=== PATIENT | female | born 1945 | race African-American/Black ===

== ENCOUNTER 2016-11-10 09:01 | Inpatient (IN) | payer OTHER ==
[2016-11-10 09:12] VITALS: BMI 28.3
--- NOTE | 2016-11-10 09:29 | PDOC ---
History of Present Illness - General History Source: Patient Exam Limitations: No Limitations - History of Present Illness Initial Comments: 11/10/16 10:26 The patient is a 71 year old female, with a significant past medical history of diabetes and hypothyroidism, who presents to the emergency department sent in by PCP for likely admission to the hospital due to low platelets on recent bloodwork. The patient reports that she is currently being evaluated by Dr. Johnson (oncologist) for a right breast mass. She reports that she saw Dr. Johnson last week and had bloodwork done, which revealed low platelets. The patient additionally admits to one week of chest pain on exertion with associated dyspnea on exertion. The patient describes her chest pain as tight. She also reports a mild, dry cough for the past day and reports generalized weakness but denies feeling lightheaded or any syncopal episodes. The patient denies fever, chills, nausea, vomiting, diarrhea, melena or dysuria. Allergies: Codeine Past Surgical History: Cholecystectomy Family History: Extensive cardiac issues Social History: Non smoker. Denies alcohol or drug use. PCP: Dr. Anam Faith <Ashely Lewis - Last Filed: 11/10/16 11:54> - General History Source: Patient Exam Limitations: No Limitations <William Rivera - Last Filed: 11/12/16 15:45> - General Chief Complaint: Revisit, Lab Variance Stated Complaint: ADMISSION PCP, BLOOD TRANS Time Seen by Provider: 11/10/16 09:15 Past History <Ashely Lewis - Last Filed: 11/10/16 11:54> - Past Medical History Anemia: No Asthma: Yes Cancer: No Cardiac Disorders: No CVA: No COPD: No CHF: No Dementia: No Diabetes: Yes GI Disorders: Yes (GASTRITIS) Disorders: No HTN: Yes Hypercholesterolemia: No Liver Disease: Yes Seizures: No Thyroid Disease: Yes - Surgical History Cholecystectomy: Yes - Psycho/Social/Smoking Cessation Hx Anxiety: No Suicidal Ideation: No Smoking History: Never smoked Have you smoked in the past 12 months: No Information on smoking cessation initiated: No Hx Alcohol Use: No Drug/Substance Use Hx: No Substance Use Type: None <William Rivera - Last Filed: 11/12/16 15:45> - Past Medical History Allergies/Adverse Reactions: Allergies Allergy/AdvReac Type Severity Reaction Status Date / Time codeine Allergy Severe Rash Verified 11/10/16 09:07 Home Medications: Ambulatory Orders Levothyroxine [Synthroid] 75 mcg PO DAILY 05/12/13 Propranolol HCl 80 mg PO HS 05/12/13 Linagliptin [Tradjenta] 5 mg PO DAILY 04/11/16 Review of Systems - Review of Systems Able to Perform ROS?: Yes Comments:: 11/10/16 10:13 GENERAL/CONSTITUTIONAL: +Weakness. No fever or chills. HEAD, EYES, EARS, NOSE AND THROAT: No change in vision. No ear pain or discharge. No sore throat. CARDIOVASCULAR: +Chest pain on exertion, dyspnea on exertion. RESPIRATORY: +Cough. No wheezing or hemoptysis. GASTROINTESTINAL: No nausea, vomiting, diarrhea or constipation. GENITOURINARY: No dysuria, frequency, or change in urination. MUSCULOSKELETAL: No joint or muscle swelling or pain. No neck or back pain. SKIN: No rash. NEUROLOGIC: No headache, vertigo, loss of consciousness, or change in strength/ sensation. ENDOCRINE: No increased thirst. No abnormal weight change. HEMATOLOGIC/LYMPHATIC: No anemia, easy bleeding, or history of blood clots. ALLERGIC/IMMUNOLOGIC: No hives or skin allergy. <Ashely Lewis - Last Filed: 11/10/16 11:54> *Physical Exam - Vital Signs Last Vital Signs Temp Pulse Resp BP Pulse Ox 98.0 F 73 18 115/58 100 11/10/16 09:08 11/10/16 09:08 11/10/16 09:08 11/10/16 09:08 11/10/16 09:08 - Physical Exam Comments: 11/10/16 09:31 GENERAL: Awake, alert, and fully oriented, in no acute distress. HEAD: No signs of trauma. EYES: PERRLA, EOMI, sclera anicteric, conjunctiva clear. ENT: Auricles normal inspection, hearing grossly normal, nares patent, oropharynx clear without exudates. Moist mucosa. NECK: Normal ROM, supple, no lymphadenopathy, JVD, or masses. LUNGS: Breath sounds equal, clear to auscultation bilaterally. No wheezes, and no crackles. HEART: Regular rate and rhythm, normal S1 and S2, no murmurs, rubs or gallops. ABDOMEN: Soft, nontender, normoactive bowel sounds. No guarding, no rebound. No masses. EXTREMITIES: Normal range of motion, no edema. No clubbing or cyanosis. No cords , erythema, or tenderness. NEUROLOGICAL: Cranial nerves II through XII grossly intact. Normal speech, normal gait. SKIN: Warm, dry, normal turgor, no rashes or lesions noted. RECTAL EXAM: No fissures, tears or hemorrhoids. Brown stool. <Ashely Lewis - Last Filed: 11/10/16 11:54> - Vital Signs Last Vital Signs Temp Pulse Resp BP Pulse Ox 98.0 F 73 18 115/58 100 11/10/16 09:08 11/10/16 09:08 11/10/16 09:08 11/10/16 09:08 11/10/16 09:08 <William Rivera - Last Filed: 11/12/16 15:45> Heart Score/ECG Review - History History: Slightly suspicious - Electrocardiogram EKG: Normal - Age Age: >/= 65 - Risk Factors Risk Factors Heart Score: Yes Hx Diabetes Based on the list above the patient has:: 1-2 risk factors - Troponin Troponin: </= normal limit - Score Heart Score - Total: 3 #1 ECG reviewed & interpreted by me at: 10:00 11/10/16 10:05 NSR 73, T wave flat III, no std/charley, normal axis, normal intervals QTC 453 msec <William Rivera - Last Filed: 11/12/16 15:45> ED Treatment Course - LABORATORY CBC & Chemistry Diagram: 11/10/16 09:35 11/10/16 09:35 <Ashely Lewis - Last Filed: 11/10/16 11:54> - LABORATORY CBC & Chemistry Diagram: 11/12/16 08:00 11/12/16 06:35 <William Rivera - Last Filed: 11/12/16 15:45> Medical Decision Making - Medical Decision Making 11/10/16 10:49 EXAM: RAD/CHEST PA & LAT Reviewed By: Dr. Gavin Howe IMPRESSION: No evidence of active pulmonary disease. Called Dr. Paul at at 10:47. Awaiting callback. Dr. Beverly returned call at 10:48. Case discussed. <JoshuaAshely - Last Filed: 11/10/16 11:54> - Medical Decision Making 11/10/16 09:28 A portion of this note was documented by scribe services under my direction. I have reviewed the details of the note, within reason, and agree with the documentation with the following case summary and management plan written by me. Patient treated in the ED. Nursing notes are reviewed and incorporated into the medical decision-making. Vital signs reviewed. Peripheral IV access obtained by the nurse, laboratory studies are drawn and sent, reviewed and interpreted by myself. Vital Signs Temp Pulse Resp BP Pulse Ox 98.0 F 73 18 115/58 100 11/10/16 09:08 11/10/16 09:08 11/10/16 09:08 11/10/16 09:08 11/10/16 09:08 71-year-old female with past medical history diabetes, hypothyroidism, under current evaluation by oncologist Dr. Johnson for right breast mass sent in by Dr. Anam Faith for blood chest fusion and admission to the hospital. 6 days ago, the patient had underwent routine blood work in preparation for her visit to the oncologist tomorrow for the right breast mass. Her blood results returned and low plts. When asked further regarding symptoms, the patient versus one week of chest pain on exertion and dyspnea on exertion. Reports feeling fatigue but denies lightheadedness or syncope. Also reports a mild dry cough yesterday. Denies fevers. We'll need to obtain a CBC and a type and screen and transfuse PRN if plts or Hgb is low. However, given her age and strong family history of cardiac disease , we'll need to rule out myocardial infarction. We'll obtain EKG, chest x-ray, troponin. Ultimate, the patient should be mid to the hospital for further evaluation. 11/10/16 10:49 Chest xray reviewed, pending official radiology read. No acute findings. CBC, BMP 11/10/16 09:35 11/10/16 09:35 CMP Sodium 142 mmol/L (136-145) 11/10/16 09:35 Potassium 4.2 mmol/L (3.5-5.1) 11/10/16 09:35 Chloride 105 mmol/L (98-107) 11/10/16 09:35 Carbon Dioxide 28 mmol/L (21-32) 11/10/16 09:35 Anion Gap 9 (8-16) 11/10/16 09:35 BUN 12 mg/dL (7-18) 11/10/16 09:35 Creatinine 0.8 mg/dL (0.55-1.02) 11/10/16 09:35 Creat Clearance w eGFR > 60 (>60) 11/10/16 09:35 Random Glucose 278 mg/dL (74-106) H D 11/10/16 09:35 Calcium 8.2 mg/dL (8.5-10.1) L 11/10/16 09:35 Total Bilirubin 0.9 mg/dL (0.2-1.0) D 11/10/16 09:35 AST 58 U/L (15-37) H D 11/10/16 09:35 ALT 43 U/L (12-78) 11/10/16 09:35 Alkaline Phosphatase 68 U/L (45-117) 11/10/16 09:35 Creatine Kinase 95 IU/L (26-192) 11/10/16 09:35 Troponin I < 0.02 ng/ml (0.00-0.05) 11/10/16 09:35 Total Protein 6.9 g/dl (6.4-8.2) 11/10/16 09:35 Albumin 3.4 g/dl (3.4-5.0) 11/10/16 09:35 Urine Test Results Urine Color Yellow 11/10/16 09:35 Urine Appearance Clear 11/10/16 09:35 Urine pH 5.0 (5.0-8.0) 11/10/16 09:35 Ur Specific [place] 1.015 (1.001-1.035) 11/10/16 09:35 Urine Protein Negative (NEGATIVE) 11/10/16 09:35 Urine Glucose (UA) 1+ (NEGATIVE) H 11/10/16 09:35 Urine Ketones Negative (NEGATIVE) 11/10/16 09:35 Urine Blood Negative (NEGATIVE) 11/10/16 09:35 Urine Nitrite Negative (NEGATIVE) 11/10/16 09:35 Urine Bilirubin Negative (NEGATIVE) 11/10/16 09:35 Ur Leukocyte Esterase 3+ (NEGATIVE) H 11/10/16 09:35 Urine RBC 1 /hpf (0-3) 11/10/16 09:35 Urine WBC 31 /hpf (3-5) 11/10/16 09:35 Ur Epithelial Cells Rare /hpf (FEW) 11/10/16 09:35 Urine Mucus Rare 11/10/16 09:35 Labs reviewed. Low plts and Low WBC. UA positive for infection. Microbiology reviewed and urine culture ordered. Ceftriaxone ordered. Will hold off from aspirin as she has low platelets Case discussed with DR. Faith. He requests Dr. Johnson and Dr. Garcia (for biopsy). Requests DR. Muñiz's service. Case discussed with DR. Paul who accepts for telemetry admission. Case discussed in detail with admitting physician including history, physical exam and ancillary studies. Admitting physician has assumed care for the patient, will follow all pending diagnostics and will complete the evaluation and treatment. <William Rivera - Last Filed: 11/12/16 15:45> *DC/Admit/Observation/Transfer - Attestations Scribe Attestion: 11/10/16 09:31 Documentation prepared by Ashely Lewis, acting as medical technologist generalist for William Rivera MD. <Ashely Lewis - Last Filed: 11/10/16 11:54> - Discharge Dispostion Admit: Yes <William Rivera - Last Filed: 11/12/16 15:45> Diagnosis at time of Disposition: Thrombocytopenia Leukopenia Qualifiers: Leukopenia type: other Qualified Code(s): D72.818 - Other decreased white blood cell count UTI (urinary tract infection) Qualifiers: Urinary tract infection type: site unspecified Hematuria presence: without hematuria Qualified Code(s): N39.0 - Urinary tract infection, site not specified - Referrals
[2016-11-10 09:58] LABS: BASOPHIL 0.4 % (0-2.0); EOSINOPHIL 2.9 % (0-4.5); MCH 32.6 pg (25.7-33.7); MCHC 34.2 g/dl (32.0-36.0); MEAN CELL VOLUME 95.3 fl (80-96); MEAN PLT VOLUME 10.5 fl (7.5-11.1); NEUTROPHILS 71.4 % (42.8-82.8); PLATELET COUNT 47 K/MM3 (134-434); RDW 13.8 % (11.6-15.6); WHITE BLOOD COUNT 3.1 K/mm3 (4.0-10.0)
[2016-11-10 10:08] LABS: STOOL FOR OCCULT BLOOD POSITIVE (NEGATIVE)
[2016-11-10 10:14] LABS: URINE APPEARANCE CLEAR; URINE BILIRUBIN NEGATIVE (NEGATIVE); URINE BLOOD NEGATIVE (NEGATIVE); URINE COLOR YELLOW; URINE GLUCOSE (UA) 1+ (NEGATIVE); URINE KETONE NEGATIVE (NEGATIVE); URINE NITRITE NEGATIVE (NEGATIVE); URINE PROTEIN NEGATIVE (NEGATIVE); URINE UROBILINOGEN NEGATIVE E.U./dl (0.2-1.0)
[2016-11-10 10:15] LABS: ALBUMIN 3.4 g/dl (3.4-5.0); ANION GAP 9 (8-16); BILIRUBIN,TOTAL 0.9 mg/dL (0.2-1.0); CALCIUM 8.2 mg/dL (8.5-10.1); CO2 28 mmol/L (21-32); CREATININE 0.8 mg/dL (0.55-1.02); GLUCOSE,RANDOM 278 mg/dL (74-106); INR 1.25 (0.82-1.09); PROTHROMBIN TIME (PATIENT) 13.8 SEC (9.98-11.88); SGOT/AST 58 U/L (15-37); SGPT/ALT 43 U/L (12-78); TOT PROT 6.9 g/dl (6.4-8.2)
[2016-11-10 10:17] LABS: ALK PHOS 68 U/L (45-117); TROPONIN I < 0.02 ng/ml (0.00-0.05)
[2016-11-10 10:18] LABS: ACTIVATED PTT 31.4 SECONDS (26.9-34.4)
[2016-11-10 10:21] LABS: URINE LEUK ESTERASE 3+ (NEGATIVE)
[2016-11-10 10:26] LABS: URINE MUCUS RARE; URINE RBC 1 /hpf (0-3); URINE WBC 31 /hpf (3-5)
[2016-11-10] MEDS ORDERED: CEFTRIAXONE 1 GM in DEXTROSE 5%-WATER - 50 ML IVPB ONE (10:43)
[2016-11-10] MEDS ORDERED: CEFTRIAXONE 50 ML ONE (12:30)
--- NOTE | 2016-11-10 12:51 | HP ---
Admitting History and Physical - Primary Care Physician PCP: Anam Faith I - Admission Chief Complaint: sent inby PMD for abnormal blod work History of Present Illness: The patient is a 71 year old female, with a significant past medical history of diabetes and hypothyroidism, who presents to the emergency department sent in by PCP for likely admission to the hospital due to low platelets on recent bloodwork. The patient reports that she is currently being evaluated by Dr. Johnson (oncologist) for a right breast mass. She reports that she saw Dr. Johnson last week and had bloodwork done, which revealed low platelets. The patient additionally admits to one week of chest pain on exertion with associated dyspnea on exertion. The patient describes her chest pain as tight. She also reports a mild, dry cough for the past day and reports generalized weakness but denies feeling lightheaded or any syncopal episodes. The patient denies fever, chills, nausea, vomiting, diarrhea, melena or dysuria. Allergies: Codeine Past Surgical History: Cholecystectomy Family History: Extensive cardiac issues Social History: Non smoker. Denies alcohol or drug use. PCP: Dr. Anam Faith per patient she complaining of right sided cva tenderss- and last nite she reporst feeling very hot. in ER Noted to have UTI,low wbc and low platelet count History Source: Patient - Past Medical History Heme/Onc: Yes: Other (right breast mass) Endocrine: Yes: Diabetes Mellitus, Hypothyroidism - Past Surgical History Additional Past Surgical History: thyroid surgery - Smoking History Smoking history: Never smoked Have you smoked in the past 12 months: No - Alcohol/Substance Use Hx Alcohol Use: No Home Medications - Allergies Allergies/Adverse Reactions: Allergies Allergy/AdvReac Type Severity Reaction Status Date / Time codeine Allergy Severe Rash Verified 11/10/16 09:07 - Home Medications Home Medications: Ambulatory Orders Levothyroxine [Synthroid] 75 mcg PO DAILY 05/12/13 Propranolol HCl 80 mg PO HS 05/12/13 Linagliptin [Tradjenta] 5 mg PO DAILY 04/11/16 Levothyroxine [Synthroid -] 75 mcg PO DAILY #30 tablet 11/10/16 Physical Examination Vital Signs: Vital Signs Temperature 98.0 F 11/10/16 09:08 Pulse Rate 73 11/10/16 09:08 Respiratory Rate 18 11/10/16 09:08 Blood Pressure 115/58 11/10/16 09:08 O2 Sat by Pulse Oximetry (%) 100 11/10/16 09:08 Constitutional: Yes: Calm Cardiovascular: Yes: Regular Rate and Rhythm, S1, S2 Respiratory: Yes: CTA Bilaterally Gastrointestinal: Yes: Normal Bowel Sounds, Soft, Tenderness (right CVA) Edema: No Neurological: Yes: Alert, Oriented Imaging - Results Chest X-ray: Report Reviewed Problem List - Problems (1) Thrombocytopenia Assessment/Plan: oncology scd for d vt ppx Code(s): D69.6 - THROMBOCYTOPENIA, UNSPECIFIED (2) UTI (urinary tract infection) Assessment/Plan: culture pending abx hydration posible renal stone Code(s): N39.0 - URINARY TRACT INFECTION, SITE NOT SPECIFIED Qualifiers: Urinary tract infection type: site unspecified Hematuria presence: without hematuria Qualified Code(s): N39.0 - Urinary tract infection, site not specified (3) Breast mass Assessment/Plan: oncologt eval Code(s): N63 - UNSPECIFIED LUMP IN BREAST (4) Dyspnea on exertion Assessment/Plan: ECHO cardio Code(s): R06.09 - OTHER FORMS OF DYSPNEA (5) Occult blood positive stool Assessment/Plan: ppi gi consult cbc moniitorig Code(s): R19.5 - OTHER FECAL ABNORMALITIES (6) Hypothyroid Assessment/Plan: check tsh syhnthroid Code(s): E03.9 - HYPOTHYROIDISM, UNSPECIFIED (7) Diabetes Assessment/Plan: hga1c bgm sliding scale lipid panel hold ggtp4 inhibitor for now Code(s): E11.9 - TYPE 2 DIABETES MELLITUS WITHOUT COMPLICATIONS Qualifiers: Diabetes mellitus type: type 2
[2016-11-10] MEDS ORDERED: DEXTROSE 5%-0.45% SALINE 1,000 ML IV SCH (13:45)
--- NOTE | 2016-11-10 14:38 | PN ---
Progress Note (short form) - Note Progress Note: called to evaluate patient. patient was seen in office once 04/[address] Cummins. She then did not show up for a follow-up visit in 05/07 and in review of the [employer] system it appears as though in 05/07 she had a trans jugullar liver biopsy performed. this was ordered by Dr. Brush. I advised Dr. Bocanegra to call Dr. Brush's office for further evaluation.
[2016-11-10] MEDS: SODIUM CHLORIDE 1,000 ML IV SCH (14:50)
--- NOTE | 2016-11-10 16:34 | CONSULT ---
Consult - text type - Consultation Consultation Note: The patient is a 71 year old female, with a significant past medical history of diabetes and hypothyroidism, who presents to the emergency department with chest pain and shortness of breath. The patient describes her chest pain as tight. She also reports a mild, dry cough for the past day and reports generalized weakness but denies feeling lightheaded or any syncopal episodes. The patient denies fever, chills, nausea, vomiting, diarrhea, melena or dysuria. Allergies: Codeine Past Surgical History: Cholecystectomy Family History: Extensive cardiac issues Social History: Non smoker. Denies alcohol or drug use. - Past Medical History Heme/Onc: Yes: Other (right breast mass) Endocrine: Yes: Diabetes Mellitus, Hypothyroidism - Past Surgical History Additional Past Surgical History: thyroid surgery - Smoking History Smoking history: Never smoked Home Medications - Allergies Allergies/Adverse Reactions: Allergies Allergy/AdvReac Type Severity Reaction Status Date / Time codeine Allergy Severe Rash Verified 11/10/16 09:07 - Home Medications Home Medications: Ambulatory Orders Levothyroxine [Synthroid] 75 mcg PO DAILY 05/12/13 Propranolol HCl 80 mg PO HS 05/12/13 Linagliptin [Tradjenta] 5 mg PO DAILY 04/11/16 Levothyroxine [Synthroid -] 75 mcg PO DAILY #30 tablet 11/10/16 Current Medications Ceftriaxone Sodium (Rocephin 1gm Ivpb (Pre-Docked)) 1 gm IVPB DAILY [facility] Pantoprazole Sodium (Protonix 40mg Ivpb (Pre-Docked)) 100 mls @ 200 mls/hr IVPB DAILY [facility] Sodium Chloride (Normal Saline -) 1,000 mls @ 100 mls/hr IV ASDIR [facility] Last Admin: 11/10/16 14:50 Dose: 100 mls/hr Insulin Aspart (Novolog Vial Sliding Scale -) 1 vial SQ ACHS [facility] PRN Reason: Protocol Levothyroxine Sodium (Synthroid -) 75 mcg PO DAILY@0700 [facility] Physical Examination Vital Signs: Last Vital Signs Temp Pulse Resp BP Pulse Ox 98.0 F 71 20 119/62 100 11/10/16 09:08 11/10/16 14:11 11/10/16 14:11 11/10/16 14:11 11/10/16 15:14 Constitutional: Yes: Calm Cardiovascular: Yes: Regular Rate and Rhythm, S1, S2 Respiratory: Yes: CTA Bilaterally Gastrointestinal: Yes: Normal Bowel Sounds, Soft, Tenderness (right CVA) Neurological: Yes: Alert, Oriented Imaging - Results Chest X-ray: Report Reviewed Problem List - Problems (1) Thrombocytopenia Assessment/Plan: oncology scd for d vt ppx Code(s): D69.6 - THROMBOCYTOPENIA, UNSPECIFIED (2) UTI (urinary tract infection) Assessment/Plan: culture pending abx hydration posible renal stone Code(s): N39.0 - URINARY TRACT INFECTION, SITE NOT SPECIFIED Qualifiers: Urinary tract infection type: site unspecified Hematuria presence: without hematuria Qualified Code(s): N39.0 - Urinary tract infection, site not specified (3) Breast mass Assessment/Plan: oncologt eval Code(s): N63 - UNSPECIFIED LUMP IN BREAST (4) Dyspnea on exertion Assessment/Plan: ECHO cardio Code(s): R06.09 - OTHER FORMS OF DYSPNEA (5) Occult blood positive stool Assessment/Plan: ppi gi consult cbc moniitorig Code(s): R19.5 - OTHER FECAL ABNORMALITIES (6) Hypothyroid Assessment/Plan: check tsh syhnthroid Code(s): E03.9 - HYPOTHYROIDISM, UNSPECIFIED (7) Diabetes Assessment/Plan: hga1c bgm sliding scale lipid panel hold ggtp4 inhibitor for now Code(s): E11.9 - TYPE 2 DIABETES MELLITUS WITHOUT COMPLICATIONS Qualifiers: Diabetes mellitus type: type 2 A/P 71 y/o patient with cirrhosis, pncytopenia, who is being evaluated for breast mass comes in with hoarseness of voice, chestpain, cough ? bronchitis U/A s/o UTI On rocephin check blood cultures Dr. Amaya f/u regarding atypical chest pain breast mass--check u/s . will need platelet transfusion prior to biopsy
[2016-11-10] MEDS: INSULIN SLIDING SCALE (NOVOLOG) 1 VIAL SQ SCH (17:29)
[2016-11-10 18:28] LABS: TROPONIN I < 0.02 ng/ml (0.00-0.05)
[2016-11-11] MEDS: INSULIN SLIDING SCALE (NOVOLOG) 1 VIAL SQ SCH ×5 (00:10→21:39)
[2016-11-11] MEDS ORDERED: LEVOTHYROXINE NA 25 MCG TABLET (FP) ONE (07:27)
[2016-11-11] MEDS: LEVOTHYROXINE NA 75 MCG TABLET (FP) PO SCH (07:31)
[2016-11-11 07:55] LABS: INR 1.26 (0.82-1.09); PROTHROMBIN TIME (PATIENT) 13.9 SEC (9.98-11.88)
[2016-11-11 08:01] LABS: BASOPHIL 0.4 % (0-2.0); EOSINOPHIL 4.5 % (0-4.5); MCH 32.7 pg (25.7-33.7); MCHC 34.2 g/dl (32.0-36.0); MEAN CELL VOLUME 95.6 fl (80-96); MEAN PLT VOLUME 10.3 fl (7.5-11.1); NEUTROPHILS 59.4 % (42.8-82.8); RDW 13.8 % (11.6-15.6); WHITE BLOOD COUNT 2.4 K/mm3 (4.0-10.0)
[2016-11-11 08:09] LABS: PHOSPHOROUS 2.9 mg/dL (2.5-4.9); SGOT/AST 57 U/L (15-37)
[2016-11-11 08:24] LABS: ALK PHOS 54 U/L (45-117); ANION GAP 6 (8-16); BILIRUBIN,TOTAL 0.9 mg/dL (0.2-1.0); CALCIUM 7.8 mg/dL (8.5-10.1); CO2 26 mmol/L (21-32); CREATININE 0.6 mg/dL (0.55-1.02); GLUCOSE,RANDOM 124 mg/dL (74-106); MAGNESIUM 1.8 mg/dL (1.8-2.4); PLATELET COUNT 36 K/MM3 (134-434); SGPT/ALT 39 U/L (12-78); THYROID STIMULATING HORMONE 0.62 uIU/ml (0.358-3.74)
[2016-11-11] MEDS ORDERED: PANTOPRAZOLE SODIUM 40 MG VIAL ONE (09:14)
--- NOTE | 2016-11-11 09:15 | PN ---
Progress Note (short form) - Note Progress Note: Cardiology Consult Dictated Patient known to me from office consultation, referred by Dr. Faith in August for evaluation of RHODES. Cardiac work up has been unremarkable including a recent nuclear stress test showing no ischemia with normal LVEF and prior non-obstructive cath around . She does have a trivial pericardial effusion, stable since August which is not the cause of her sx, in my opinion. A breast biopsy planned last week was cancelled due to new onset of pancytopenia of unclear etiology. She has a PMH of cirrhosis, etiology also unclear. REC: Do not suspect cardiac etiology of RHODES- more likely due to anemia and possible underlying malignancy vs chronic inflammatory dz. Recommend oncology and pulmonary evaluation. Patient can be downgraded from telemetry to general medical floor.
[2016-11-11] MEDS: PANTOPRAZOLE SODIUM 100 ML IVPB SCH (09:17)
--- NOTE | 2016-11-11 09:53 | PN ---
Progress Note, Physician History of Present Illness: C/O CHEST PAIN WORSE ON MOVEMENT C/O COUGH - Current Medication List Current Medications: Active Medications Ceftriaxone Sodium (Rocephin 1gm Ivpb (Pre-Docked)) 1 gm IVPB DAILY [facility] Pantoprazole Sodium (Protonix 40mg Ivpb (Pre-Docked)) 100 mls @ 200 mls/hr IVPB DAILY [facility] Last Admin: 11/11/16 09:17 Dose: 200 mls/hr Sodium Chloride (Normal Saline -) 1,000 mls @ 100 mls/hr IV ASDIR [facility] Last Admin: 11/10/16 14:50 Dose: 100 mls/hr Insulin Aspart (Novolog Vial Sliding Scale -) 1 vial SQ ACHS [facility] PRN Reason: Protocol Last Admin: 11/11/16 07:20 Dose: Not Given Levothyroxine Sodium (Synthroid -) 75 mcg PO DAILY@0700 [facility] Last Admin: 11/11/16 07:31 Dose: 75 mcg - Objective Vital Signs: Vital Signs Temperature 98.0 F 11/11/16 07:12 Pulse Rate 67 11/11/16 07:12 Respiratory Rate 17 11/11/16 07:12 Blood Pressure 119/69 11/11/16 07:12 O2 Sat by Pulse Oximetry (%) 97 11/11/16 07:12 Cardiovascular: Yes: Regular Rate and Rhythm Respiratory: Yes: Diminished Gastrointestinal: Yes: Normal Bowel Sounds, Soft Edema: No Labs: CBC, BMP 11/11/16 07:00 11/11/16 07:00 INR, PTT INR 1.26 (0.82-1.09) H 11/11/16 07:00 Fibrinogen 279.0 mg/dL (238-498) 11/11/16 07:00 Assessment/Plan - Problems (1) Thrombocytopenia Assessment/Plan: AND LEUKOPENIA oncology scd for d vt ppx Code(s): D69.6 - THROMBOCYTOPENIA, UNSPECIFIED (2) UTI (urinary tract infection) Assessment/Plan: culture pending abx hydration CT NOTED--NO STONES Code(s): N39.0 - URINARY TRACT INFECTION, SITE NOT SPECIFIED Qualifiers: Urinary tract infection type: site unspecified Hematuria presence: without hematuria Qualified Code(s): N39.0 - Urinary tract infection, site not specified (3) Breast mass Assessment/Plan: oncology eval Code(s): N63 - UNSPECIFIED LUMP IN BREAST (4) Dyspnea on exertion Assessment/Plan: ECHO cardio CT OF CHEST--PULM NEBS Code(s): R06.09 - OTHER FORMS OF DYSPNEA (5) Occult blood positive stool Assessment/Plan: ppi gi consult cbc monitoring Code(s): R19.5 - OTHER FECAL ABNORMALITIES (6) Hypothyroid Assessment/Plan: check tsh syhnthroid Code(s): E03.9 - HYPOTHYROIDISM, UNSPECIFIED (7) Diabetes Assessment/Plan: hga1c bgm sliding scale lipid panel hold ggtp4 inhibitor for now Code(s): E11.9 - TYPE 2 DIABETES MELLITUS WITHOUT COMPLICATIONS Qualifiers: Diabetes mellitus type: type 2
--- NOTE | 2016-11-11 10:10 | CONS ---
DATE OF CONSULTATION: 11/11/2016 REQUESTING PHYSICIAN: Stehpon Muñiz MD REASON FOR CONSULTATION: Shortness of breath. HISTORY: The patient is a 71-year-old female who is known to me from office referred by Dr. Anam Faith around August 2016 for evaluation of chronic dyspnea on exertion. Cardiac workup has been essentially unremarkable including a recent nuclear stress test, which showed no ischemia with normal LV EF. It should be noted that the patient has also had a previous cardiac catheterization around 2012, which showed nonobstructive disease at [facility]. She does have a trivial pericardial effusion, which has been stable since August and I do not believe is the etiology of her dyspnea on exertion. A breast biopsy was planned last week here at [facility] but was cancelled because the patient was found to have pancytopenia of unknown etiology of new onset. She is now referred to the emergency room for evaluation of new onset pancytopenia and chronic dyspnea on exertion and ongoing atypical chest pain- primarily with coughing. On review of systems she has chronic dyspnea on exertion as well as a new dry cough, which began on Thursday. Her chest x-ray here on presentation to the ER showed no evidence of active disease. She has been afebrile thus far in the emergency room with O2 saturation of 99%-100% on room air. PAST MEDICAL HISTORY: Significant for hypothyroidism, diabetes, status post cholecystectomy. ALLERGIES: CODEINE. HOME MEDICATIONS: Include propranolol 80 mg nightly, Tradjenta 5 mg daily, and Synthroid 75 mcg daily. FAMILY HISTORY: Noncontributory. SOCIAL HISTORY: No alcohol, tobacco, or illicit drug use. PHYSICAL EXAMINATION: General: Comfortable. Lying in bed in no acute distress. Vital Signs: Temperature 98 Fahrenheit, pulse 67 and regular, blood pressure on presentation to the ER 119/62, currently 119/69, O2 saturation has been between 96%-100% on room air. Head and Neck: Anicteric. No JVD. No bruits in the carotids. Heart: S1, S2, regular. No murmurs. Chest: Decreased breath sounds at the bases. Otherwise, clear with no rales or wheezing. Abdomen: Generally soft, nontender. No rebound or guarding. Extremities: Warm with no edema. DIAGNOSTICS: Microbiology: Urine and blood cultures are pending. Labs: White count 2.4, hemoglobin 11.1, platelet count 36,000. Differential: Neutrophils 59%, lymphocytes 23%, monocytes 12.9%, eosinophils 4.5%, basophils 0.4%, INR 1.26. Chemistry: Sodium 141, potassium 3.7, BUN 11, creatinine 0.6, glucose 124 random level, magnesium 1.8. AST 57, ALT 39, CK and troponin are negative x2 sets with serial values of CK 95, CK 88, and troponin less than 0.02. TSH is 0.62, albumin 3, which is low, and total protein is 6, which is also low. Urinalysis was significant for 1+ glucose and 3+ leukocyte esterase, 31 white blood cells. Stool occult blood was positive. An abdominal CT was performed and showed no evidence of urinary tract calculi. The liver appeared hypodense with splenomegaly suggestive of cirrhosis. ASSESSMENT: A 71-year-old female with thyroid disease, recent breast mass with cancelled biopsy due to the development of thrombocytopenia or unclear etiology. Recent negative cardiac workup including stress test for her chronic dyspnea on exertion. She does have a trivial pericardial effusion, which has been stable since August, which I do not believe is the etiology of her shortness of breath. PLAN: 1. Oncology evaluation. 2. Consider pulmonary evaluation. 3. Given her recent negative cardiac ischemic workup and 2 sets of negative enzymes on this presentation, she can be downgraded from telemetry to a general medical floor. We will follow. Thank you for the consultation. GENEVIEVE INMAN M.D. [id number] MTDD
[2016-11-11] MEDS ORDERED: CEFTRIAXONE 50 ML ONE (10:16)
[2016-11-11] MEDS: cefTRIAXone 1 GM/50 ML BAG (PRE-DOCKED) IVPB SCH (10:21)
[2016-11-11 11:23] LABS: TROPONIN I < 0.02 ng/ml (0.00-0.05)
[2016-11-11 11:34] LABS: C-REACTIVE PROTEIN 1.1 MG/DL (0.00-0.3)
[2016-11-11] MEDS ORDERED: ALBUTEROL SO4 2.5/IPRATROPIUM 0.5 INH SOL 3 ML VIAL.NEB. NEB ONE (12:15)
[2016-11-11] MEDS: ALBUTEROL SO4 2.5/IPRATROPIUM 0.5 INH SOL 3 ML VIAL.NEB. NEB SCH ×3 (12:25→23:20)
--- NOTE | 2016-11-11 13:04 | CONSULT ---
Consult Consult Specialty:: PULMONARY Referred by:: Dr. Muñiz Reason for Consultation:: shortness of breath, asthma - History of Present Illness Chief Complaint: abnormal lab work History of Present Illness: 71yo female with h/o DM, hypothyroidism, asthma who was sent by her PMD for thrombocytopenia and leukopenia on outpt blood work. She reports worsening shortness of breath x 4 days, associated with a nonproductive cough ahd wheezing. She also reports chest heaviness anteriorly and under her left breast. Some right flank pain and nausea as well. She does have a history of asthma, maintained at home on Symbicort and Albuterol. She has never been hospitalized for asthma and has not been on prednisone. She is a homemaker. She did receive her flu shot this year. - History Source History Provided By: Patient Limitations to Obtaining History: No Limitations - Past Medical History Pulmonary: Yes: Asthma Endocrine: Yes: Diabetes Mellitus, Hypothyroidism - Past Surgical History Past Surgical History: Yes: Cholecystectomy - Alcohol/Substance Use Hx Alcohol Use: No - Smoking History Smoking history: Never smoked Have you smoked in the past 12 months: No Home Medications - Allergies Allergies/Adverse Reactions: Allergies Allergy/AdvReac Type Severity Reaction Status Date / Time codeine Allergy Severe Rash Verified 11/10/16 09:07 - Home Medications Home Medications: Ambulatory Orders Levothyroxine [Synthroid] 75 mcg PO DAILY 05/12/13 Propranolol HCl 80 mg PO HS 05/12/13 Linagliptin [Tradjenta] 5 mg PO DAILY 04/11/16 Family Disease History - Family Disease History Other Family History: non-contributory Review of Systems - Review of Systems Constitutional: denies: Chills, Fever Eyes: denies: Recent Change in Vision HENT: denies: Nasal Congestion, Throat Pain Neck: denies: Stiffness, Tenderness Cardiovascular: reports: Chest Pain, Shortness of Breath. denies: Edema, Palpitations Respiratory: reports: Cough, SOB, Wheezing. denies: Hemoptysis Gastrointestinal: reports: Nausea. denies: Abdominal Pain, Vomiting Genitourinary: reports: Flank Pain. denies: Dysuria, Hematuria Neurological: denies: Dizziness, Headache Physical Exam Vital Sings: Vital Signs Temperature 98.0 F 11/11/16 07:12 Pulse Rate 65 11/11/16 12:25 Respiratory Rate 16 11/11/16 12:25 Blood Pressure 120/67 11/11/16 12:25 O2 Sat by Pulse Oximetry (%) 100 11/11/16 12:25 Constitutional: Yes: Calm Eyes: Yes: Conjunctiva Clear, EOM Intact HENT: Yes: Atraumatic, Normocephalic Neck: Yes: Supple, Trachea Midline Cardiovascular: Yes: Regular Rate and Rhythm Respiratory: Yes: Rhonchi, Wheezes ...Clubbing: No Gastrointestinal: Yes: Normal Bowel Sounds, Soft. No: Tenderness Edema: No Neurological: Yes: Alert, Oriented Labs: CBC, BMP 11/11/16 07:00 11/11/16 07:00 Imaging - Results Chest X-ray: Report Reviewed, Image Reviewed (no infiltrates) Problem List - Problems (1) UTI (urinary tract infection) Code(s): N39.0 - URINARY TRACT INFECTION, SITE NOT SPECIFIED Qualifiers: Urinary tract infection type: site unspecified Hematuria presence: without hematuria Qualified Code(s): N39.0 - Urinary tract infection, site not specified (2) Leukopenia Code(s): D72.819 - DECREASED WHITE BLOOD CELL COUNT, UNSPECIFIED Qualifiers: Leukopenia type: other Qualified Code(s): D72.818 - Other decreased white blood cell count (3) Thrombocytopenia Code(s): D69.6 - THROMBOCYTOPENIA, UNSPECIFIED (4) Asthmatic bronchitis Code(s): J45.909 - UNSPECIFIED ASTHMA, UNCOMPLICATED (5) Diabetes Code(s): E11.9 - TYPE 2 DIABETES MELLITUS WITHOUT COMPLICATIONS Qualifiers: Diabetes mellitus type: type 2 (6) Hypothyroid Code(s): E03.9 - HYPOTHYROIDISM, UNSPECIFIED Assessment/Plan UTI Leukopenia/Thrombocytopenia Asthmatic Bronchitis exacerbation DM Hypothyroidism - asthma is reported to be mild, some scattered rhonchi and wheezing on exam, she feels significantly improved with just nebulizer treatments - will start standing bronchodilators and PRN - can defer systemic steroids, will reassess tomorrow - antibiotics for UTI - f/u cultures - monitor CBC, hematology work up in progress - DVT prophylaxis Thank you for this consult Francisco Mccullough MD
--- NOTE | 2016-11-11 14:04 | PN ---
Progress Note (short form) - Note Progress Note: ID consult dictated imp/reccd leukopenia/thrombocytopenia- ?viral or cirrhosis uti breast mass possible liver cirrhosis liver biopsy 2012 with steatohepatitis and leate stage fibrosis denies history of hepatitis or etoh use rocephin for UTI ct scans unrevealing HIV test hep serology influenza screen
[2016-11-11] MEDS: SODIUM CHLORIDE 1,000 ML IV SCH (14:25)
--- NOTE | 2016-11-11 15:13 | CONS ---
DATE OF CONSULTATION: DATE OF DICTATION: 11/11/2016 HISTORY OF PRESENT ILLNESS: This is a 71-year-old woman who was sent to the emergency room by her PMD for recent pancytopenia. She is being evaluated for a right breast mass and was found to have a low-platelet count and was advised admission for further evaluation. She notes on this past weekend, she had been to visit her son, who lives in a alf. She had been wearing a mask there as they had advised as several of the residents had had bronchitis, but she noted after she went to visit her home that she developed a cough, a mild dry cough, and some chest discomfort. She has no fevers or chills. No nausea, vomiting, or diarrhea. She has intermittent dysuria. She has a prior history of nephrolithiasis. She denies any alcohol use. She denies any history of hepatitis. PAST MEDICAL HISTORY: Notable for asthma, diabetes, gastritis, hypertension, and liver disease as well as thyroid disease. She is status post cholecystectomy. In 2012, she had a liver biopsy that showed steatohepatitis and steatosis with late-stage fibrosis, as well. In 2016, she underwent a right ESWL for laser lithotripsy for nephrolithiasis. FAMILY HISTORY: Notable for coronary artery disease. SOCIAL HISTORY: There is no history of cigarette or substance use. She is originally from [place]. She has lived in this country for 52 years. She denies any sick contacts except that visit to see her son. ALLERGIES: She is allergic to CODEINE. MEDICATIONS: Her medications as an outpatient include levothyroxine, propranolol, Tradjenta. REVIEW OF SYSTEMS: As per HPI. There is no history of any recent travel. PHYSICAL EXAMINATION: General: She is awake and alert. Vital signs: Temperature is 98, pulse is 65, blood pressure 120/67, respiratory rate 16. She is saturating 100% on room air. HEENT: She is normocephalic. Her eyes are anicteric. Neck: Her neck is supple. Lungs: Clear to auscultation. Heart: Regular rate and rhythm. Abdomen: Soft, nontender. She has no suprapubic discomfort. Extremities: Without edema. She has some very mild right flank tenderness on examination. LABORATORIES: Notable for a white count of 2.4, hemoglobin 11.1, platelets 36,000. INR 1.2. BUN 11, creatinine 0.6, albumin 3. Urinalysis is 3+ leukocyte esterase with 31 white cells and elevated AST. SUMMARY: This is a 71-year-old woman admitted with leukopenia and thrombocytopenia. Prior liver biopsy results with late-stage fibrosis in 2012 secondary to steatohepatitis. This could very well be the cause of her leukopenia and thrombocytopenia. She is agreeable to HIV testing, which I would obtain. As well, would check hepatitis serology, and she has been started on ceftriaxone for UTI, which I would continue at this time. Blood cultures and urine cultures have been sent. Given her dry cough, would screen her for influenza, as well, which could cause leukopenia. TWAN HATHAWAY M.D. [id number]
--- NOTE | 2016-11-11 15:36 | CONSULT ---
Consult Consult Specialty:: GI - History of Present Illness Chief Complaint: thrombocytopenia History of Present Illness: he patient is a 71 year old female, with a significant past medical history of diabetes and hypothyroidism, who presents to the emergency department with chest pain and shortness of breath. The patient describes her chest pain as tight. She also reports a mild, dry cough for the past day and reports generalized weakness but denies feeling lightheaded or any syncopal episodes. The patient denies fever, chills, nausea, vomiting, diarrhea, melena or dysuria. The patient has history of HERNANDEZ complicated by pathological cirrhosis - Past Medical History Pulmonary: Yes: Asthma Endocrine: Yes: Diabetes Mellitus, Hypothyroidism - Past Surgical History Past Surgical History: Yes: Cholecystectomy - Alcohol/Substance Use Hx Alcohol Use: No - Smoking History Smoking history: Never smoked Have you smoked in the past 12 months: No Home Medications - Allergies Allergies/Adverse Reactions: Allergies Allergy/AdvReac Type Severity Reaction Status Date / Time codeine Allergy Severe Rash Verified 11/10/16 09:07 - Home Medications Home Medications: Ambulatory Orders Levothyroxine [Synthroid -] 75 mcg PO DAILY 05/12/13 Propranolol HCl 80 mg PO HS 05/12/13 Linagliptin [Tradjenta] 5 mg PO DAILY 04/11/16 Albuterol 2.5/Ipratropium 0.5 [Duoneb -] 1 amp NEB QIDR #30 amp 11/13/16 Budesonide/Formeterol Fumarate [SYMBICORT 160/4.5mcg -] 2 puff IH BID #1 inhaler 11/13/16 Cefuroxime Axetil [Ceftin -] 500 mg PO Q12H #10 tablet 11/13/16 Pantoprazole Sodium [Protonix -] 40 mg PO DAILY #7 tablet.ec 11/13/16 Prednisone [Deltasone -] 10 mg PO DAILY #30 tablet 11/13/16 Family Disease History - Family Disease History Other Family History: non-contributory Physical Exam-GI Vital Signs: Vital Signs Temperature 98.3 F 11/11/16 14:08 Pulse Rate 72 11/11/16 14:08 Respiratory Rate 24 11/11/16 14:08 Blood Pressure 141/69 11/11/16 14:08 O2 Sat by Pulse Oximetry (%) 100 11/11/16 12:25 Constitutional: Yes: Well Nourished Eyes: Yes: Conjunctiva Clear HENT: Yes: Atraumatic Neck: Yes: Supple Cardiovascular: Yes: Regular Rate and Rhythm Respiratory: Yes: CTA Bilaterally Gastrointestinal Inspection: No: Ascites ...Palpate: Yes: Soft. No: Firm/Rigid, Guarding, Hepatomegaly, Mass, Pulsatile Mass, Splenomegaly, Tenderness, Tenderness, Epigastium Labs: CBC, BMP 11/11/16 07:00 11/11/16 07:00 INR, PTT INR 1.26 (0.82-1.09) H 11/11/16 07:00 Fibrinogen 279.0 mg/dL (238-498) 11/11/16 07:00 Problem List - Problems (1) Thrombocytopenia Assessment/Plan: secondary to portal HTN vs bone marrow failure R> Hematology work-up made aware to ff-up Code(s): D69.6 - THROMBOCYTOPENIA, UNSPECIFIED
--- NOTE | 2016-11-11 16:13 | EKG ---
Test Reason : Blood Pressure : / mmHG Vent. Rate : 076 BPM Atrial Rate : 076 BPM P-R Int : 182 ms QRS Dur : 082 ms QT Int : 414 ms P-R-T Axes : 042 023 044 degrees QTc Int : 465 ms NORMAL SINUS RHYTHM NORMAL ECG WHEN COMPARED WITH ECG OF 10-NOV-2016 10:01, NO SIGNIFICANT CHANGE WAS FOUND Confirmed by BANDAR ANDERSON MD ([id number]) on 11/11/2016 4:13:28 PM Referred By: Oriana THOMPSON Confirmed By:BANDAR ANDERSON MD
--- NOTE | 2016-11-11 16:35 | EKG ---
Test Reason : Blood Pressure : / mmHG Vent. Rate : 073 BPM Atrial Rate : 073 BPM P-R Int : 180 ms QRS Dur : 088 ms QT Int : 412 ms P-R-T Axes : 050 014 043 degrees QTc Int : 453 ms NORMAL SINUS RHYTHM NORMAL ECG NO PREVIOUS ECGS AVAILABLE Confirmed by BANDAR ANDERSON MD ([id number]) on 11/11/2016 4:35:05 PM Referred By: Confirmed By:BANDAR ANDERSON MD
--- NOTE | 2016-11-11 21:29 | PN ---
Progress Note (short form) - Note Progress Note: Patient seen and examined Hacking non productive cough with chest congestion Last Vital Signs Temp Pulse Resp BP Pulse Ox 97.6 F 74 22 105/69 100 11/11/16 18:52 11/11/16 18:52 11/11/16 18:52 11/11/16 18:52 11/11/16 12:25 Lungs- scattered rhonchi Cor-RSR Abdomen- no masses- H-S not definitely appreciated Breast- no dominant masses appreciated;??right axillary node Ext- on edema CBC, BMP 11/11/16 07:00 11/11/16 07:00 Current Medications Generic Name Dose Route Start Last Admin Trade Name Freq PRN Reason Stop Dose Admin Albuterol/Ipratropium 1 amp 11/11/16 12:00 11/11/16 17:30 Duoneb - NEB 1 amp QIDR [facility] Administration Ceftriaxone Sodium 1 gm 11/11/16 10:00 11/11/16 10:21 Rocephin 1gm Ivpb (Pre-Docked) IVPB 1 gm DAILY [facility] Administration Pantoprazole Sodium 100 mls @ 200 mls/hr 11/11/16 10:00 11/11/16 09:17 Protonix 40mg Ivpb (Pre-Docked) IVPB 200 mls/hr DAILY [facility] Administration Sodium Chloride 1,000 mls @ 100 mls/hr 11/10/16 14:00 11/11/16 14:25 Normal Saline - IV Not Given ASDIR [facility] Insulin Aspart 1 vial 11/10/16 16:30 11/11/16 17:31 Novolog Vial Sliding Scale - SQ Not Given ACHS [facility] Protocol Levothyroxine Sodium 75 mcg 11/11/16 07:00 11/11/16 07:31 Synthroid - PO 75 mcg DAILY@0700 [facility] Administration Impresssion: Pancytopenia ?? etiology Hepatosteatosis and liver fibrosis with CT revealing irregular contour to liver and mild splenomegaly ( perhaps etiology for pancytopenia) ??Viral illness--?? etiology for pancytopenia Breast mass Plan: Continue current therapy for infection May need bone marrow evaluation in future Will need blood bank support for biopsy.
[2016-11-11] MEDS ORDERED: INSULIN (NOVOLOG) ASPART 100 UNITS/ML 10ML VIAL ONE (21:30)
[2016-11-12] MEDS: LEVOTHYROXINE NA 75 MCG TABLET (FP) PO SCH (06:13)
[2016-11-12] MEDS: INSULIN SLIDING SCALE (NOVOLOG) 1 VIAL SQ SCH ×4 (06:14→22:10)
[2016-11-12] MEDS: ALBUTEROL SO4 2.5/IPRATROPIUM 0.5 INH SOL 3 ML VIAL.NEB. NEB SCH ×3 (06:45→18:10)
[2016-11-12 08:50] LABS: THYROID STIMULATING HORMONE 0.59 uIU/ml (0.358-3.74)
[2016-11-12] MEDS: SODIUM CHLORIDE 1,000 ML IV SCH ×3 (08:50→22:15)
--- NOTE | 2016-11-12 08:55 | PN ---
Progress Note, Physician History of Present Illness: C/O CHEST PAIN WHICH HAS IMPROVED WITH NEBS C/O COUGH - Current Medication List Current Medications: Active Medications Albuterol/Ipratropium (Duoneb -) 1 amp NEB QIDR [facility] Last Admin: 11/12/16 06:45 Dose: 1 amp Ceftriaxone Sodium (Rocephin 1gm Ivpb (Pre-Docked)) 1 gm IVPB DAILY [facility] Last Admin: 11/11/16 10:21 Dose: 1 gm Pantoprazole Sodium (Protonix 40mg Ivpb (Pre-Docked)) 100 mls @ 200 mls/hr IVPB DAILY [facility] Last Admin: 11/11/16 09:17 Dose: 200 mls/hr Sodium Chloride (Normal Saline -) 1,000 mls @ 100 mls/hr IV ASDIR [facility] Last Admin: 11/11/16 14:25 Dose: Not Given Insulin Aspart (Novolog Vial Sliding Scale -) 1 vial SQ [facility] PRN Reason: Protocol Last Admin: 11/12/16 06:14 Dose: Not Given Levothyroxine Sodium (Synthroid -) 75 mcg PO DAILY@0700 [facility] Last Admin: 11/12/16 06:13 Dose: 75 mcg - Objective Vital Signs: Vital Signs Temperature 98.5 F 11/12/16 06:00 Pulse Rate 79 11/12/16 06:00 Respiratory Rate 18 11/12/16 06:00 Blood Pressure 127/72 11/12/16 06:00 O2 Sat by Pulse Oximetry (%) 96 11/12/16 05:09 Neck: Yes: Supple Cardiovascular: Yes: Regular Rate and Rhythm Respiratory: Yes: Regular, CTA Bilaterally Gastrointestinal: Yes: Normal Bowel Sounds, Soft Breast(s): Yes: Left, Right, Mass (SMALL CYSTIC MASSSES) Labs: INR, PTT INR 1.26 (0.82-1.09) H 11/11/16 07:00 Fibrinogen 279.0 mg/dL (238-498) 11/11/16 07:00 Assessment/Plan - Problems (1) Thrombocytopenia Assessment/Plan: AND LEUKOPENIA oncology noted--may need bm scd for d vt ppx Code(s): D69.6 - THROMBOCYTOPENIA, UNSPECIFIED (2) UTI (urinary tract infection) Assessment/Plan: culture pending abx hydration CT NOTED--NO STONES Code(s): N39.0 - URINARY TRACT INFECTION, SITE NOT SPECIFIED Qualifiers: Urinary tract infection type: site unspecified Hematuria presence: without hematuria Qualified Code(s): N39.0 - Urinary tract infection, site not specified (3) Breast mass Assessment/Plan: oncology eval US--BIOPSY Code(s): N63 - UNSPECIFIED LUMP IN BREAST (4) Dyspnea on exertion Assessment/Plan: ECHO cardio CT OF CHEST-NOTED NO PE OR INFILTRATES -PULM NOTED NEBS Code(s): R06.09 - OTHER FORMS OF DYSPNEA (5) Occult blood positive stool Assessment/Plan: ppi gi consult cbc monitoring Code(s): R19.5 - OTHER FECAL ABNORMALITIES (6) Hypothyroid Assessment/Plan: check tsh syhnthroid Code(s): E03.9 - HYPOTHYROIDISM, UNSPECIFIED (7) Diabetes Assessment/Plan: hga1c bgm sliding scale lipid panel hold ggtp4 inhibitor for now Code(s): E11.9 - TYPE 2 DIABETES MELLITUS WITHOUT COMPLICATIONS Qualifiers: Diabetes mellitus type: type 2
[2016-11-12 09:00] LABS: BASOPHIL 0.2 % (0-2.0); EOSINOPHIL 3.1 % (0-4.5); MCH 32.6 pg (25.7-33.7); MCHC 34.5 g/dl (32.0-36.0); MEAN CELL VOLUME 94.7 fl (80-96); MEAN PLT VOLUME 10.2 fl (7.5-11.1); NEUTROPHILS 59.2 % (42.8-82.8); RDW 13.6 % (11.6-15.6); WHITE BLOOD COUNT 2.1 K/mm3 (4.0-10.0)
[2016-11-12] MEDS: PANTOPRAZOLE SODIUM 100 ML IVPB SCH (09:05)
[2016-11-12 09:17] LABS: PLATELET COUNT 35 K/MM3 (134-434)
[2016-11-12 09:20] LABS: HIV 1 & 2 AB NEGATIVE; HIV 1 AGp24 NEGATIVE
[2016-11-12 09:40] LABS: ALBUMIN 3.1 g/dl (3.4-5.0); ALK PHOS 56 U/L (45-117); ANION GAP 8 (8-16); BILIRUBIN,TOTAL 0.8 mg/dL (0.2-1.0); CALCIUM 8.2 mg/dL (8.5-10.1); CO2 27 mmol/L (21-32); CREATININE 0.7 mg/dL (0.55-1.02); GLUCOSE,RANDOM 117 mg/dL (74-106); SGOT/AST 63 U/L (15-37); SGPT/ALT 41 U/L (12-78); TOT PROT 6.2 g/dl (6.4-8.2)
[2016-11-12] MEDS: cefTRIAXone 1 GM/50 ML BAG (PRE-DOCKED) IVPB SCH (09:56)
--- NOTE | 2016-11-12 09:58 | PN ---
Progress Note, Physician Chief Complaint: feeling " better" Echo: repeated, no pericardial effusion. - Current Medication List Current Medications: Active Medications Albuterol/Ipratropium (Duoneb -) 1 amp NEB QIDR [facility] Last Admin: 11/12/16 06:45 Dose: 1 amp Ceftriaxone Sodium (Rocephin 1gm Ivpb (Pre-Docked)) 1 gm IVPB DAILY [facility] Last Admin: 11/12/16 09:56 Dose: 1 gm Pantoprazole Sodium (Protonix 40mg Ivpb (Pre-Docked)) 100 mls @ 200 mls/hr IVPB DAILY [facility] Last Admin: 11/12/16 09:05 Dose: 200 mls/hr Sodium Chloride (Normal Saline -) 1,000 mls @ 100 mls/hr IV ASDIR [facility] Last Admin: 11/12/16 08:50 Dose: 100 mls/hr Insulin Aspart (Novolog Vial Sliding Scale -) 1 vial SQ ACHS [facility] PRN Reason: Protocol Last Admin: 11/12/16 06:14 Dose: Not Given Levothyroxine Sodium (Synthroid -) 75 mcg PO DAILY@0700 [facility] Last Admin: 11/12/16 06:13 Dose: 75 mcg - Objective Vital Signs: Vital Signs Temperature 98.5 F 11/12/16 06:00 Pulse Rate 79 11/12/16 06:00 Respiratory Rate 18 11/12/16 06:00 Blood Pressure 127/72 11/12/16 06:00 O2 Sat by Pulse Oximetry (%) 96 11/12/16 05:09 Constitutional: Yes: No Distress, Calm Eyes: Yes: Conjunctiva Clear Cardiovascular: Yes: Regular Rate and Rhythm Respiratory: Yes: Other (scattered rhonchi; no rales or wheezing.) Gastrointestinal: Yes: Soft (no rebound or guarding.) Edema: No Neurological: Yes: Alert, Oriented Labs: CBC, BMP 11/12/16 08:00 11/12/16 08:00 INR, PTT INR 1.26 (0.82-1.09) H 11/11/16 07:00 Fibrinogen 279.0 mg/dL (238-498) 11/11/16 07:00 Laboratory Tests 11/11/16 11/12/16 11/12/16 10:20 06:35 08:00 WBC 2.1 L Hgb 11.7 Hct 34.0 Plt Count 35 L* ESR 48 H Sodium 141 Potassium 3.8 BUN 12 Creatinine 0.7 - ....Imaging Cat Scan: Report Reviewed Assessment/Plan IMP: Breast mass Thrombocytopenia Splenomegaly Cirrhosis Suspected viral upper respiratory infection REC: As outlined in initial consult, a recent comprehensive cardiac work up including nuclear stress test was unremarkable- done to evaluate chronic RHODES. Previous cath 2012 was unremarkable (by report of PMD). A previously noted trivial pericardial effusion (August and confirmed to be stable last week in office) now not seen on repeat echo here would not explain chronic RHODES. Heme/Onc evaluation in progress. Pulmonary also evaluating.
--- NOTE | 2016-11-12 11:11 | PN ---
Progress Note (short form) - Note Progress Note: still some wheezing but improved Vital Signs Period Temp Pulse Resp BP Sys/Syed Pulse Ox Last 24 Hr 97.6 F-98.5 F 65-84 16-24 105-141/67-82 96-100 cor-rrr lungs scattered wheeze abd soft,nt ext no edema CBC, BMP 11/12/16 08:00 11/12/16 08:00 Laboratory Tests 11/12/16 06:35 HIV 1&2 Antibody Screen Negative HIV P24 Antigen Negative Microbiology 11/10/16 19:05 Blood - Peripheral Venous Blood Culture - Preliminary NO GROWTH OBTAINED AFTER 24 HOURS, INCUBATION TO CONTINUE FOR 4 DAYS. 11/10/16 19:05 Blood - Peripheral Venous Blood Culture - Preliminary NO GROWTH OBTAINED AFTER 24 HOURS, INCUBATION TO CONTINUE FOR 4 DAYS. 11/11/16 16:30 Nasopharyngeal Swab Influenza Types A,B Antigen (ARIC) - Final 11/11/16 16:30 Nasopharyngeal Swab - Final 11/10/16 12:22 Urine - Urine Clean Catch Urine Culture - Final a/p leukopenia/thrombocytopenia- perhaps secondary to liver disease hep serology pending hiv negative nehal pending breast mass asthmaexacerbation/bronchitis- improved UTI-urine culture negative, d/c rocephin f/u per hem/onco
--- NOTE | 2016-11-12 12:26 | PN ---
Progress Note, Physician History of Present Illness: PULMONARY ALERT,LESS COUGH,+WHEEZING - Current Medication List Current Medications: Active Medications Albuterol/Ipratropium (Duoneb -) 1 amp NEB QIDR [facility] Last Admin: 11/12/16 11:05 Dose: 1 amp Pantoprazole Sodium (Protonix 40mg Ivpb (Pre-Docked)) 100 mls @ 200 mls/hr IVPB DAILY [facility] Last Admin: 11/12/16 09:05 Dose: 200 mls/hr Sodium Chloride (Normal Saline -) 1,000 mls @ 100 mls/hr IV ASDIR [facility] Last Admin: 11/12/16 08:50 Dose: 100 mls/hr Insulin Aspart (Novolog Vial Sliding Scale -) 1 vial SQ ACHS [facility] PRN Reason: Protocol Last Admin: 11/12/16 11:11 Dose: Not Given Levothyroxine Sodium (Synthroid -) 75 mcg PO DAILY@0700 [facility] Last Admin: 11/12/16 06:13 Dose: 75 mcg - Objective Vital Signs: Vital Signs Temperature 98.5 F 11/12/16 06:00 Pulse Rate 79 11/12/16 06:00 Respiratory Rate 18 11/12/16 06:00 Blood Pressure 127/72 11/12/16 06:00 O2 Sat by Pulse Oximetry (%) 96 11/12/16 05:09 Constitutional: Yes: Well Nourished, Calm Eyes: Yes: WNL HENT: Yes: WNL Neck: Yes: WNL Cardiovascular: Yes: Regular Rate and Rhythm, S1, S2 Respiratory: Yes: Wheezes (SARAHY WHEEZES) Gastrointestinal: Yes: Normal Bowel Sounds, Soft Extremities: Yes: WNL Edema: No Labs: CBC, BMP 11/12/16 08:00 11/12/16 08:00 INR, PTT INR 1.26 (0.82-1.09) H 11/11/16 07:00 Fibrinogen 279.0 mg/dL (238-498) 11/11/16 07:00 Problem List - Problems (1) Asthmatic bronchitis Code(s): J45.909 - UNSPECIFIED ASTHMA, UNCOMPLICATED (2) Breast mass Code(s): N63 - UNSPECIFIED LUMP IN BREAST (3) Diabetes Code(s): E11.9 - TYPE 2 DIABETES MELLITUS WITHOUT COMPLICATIONS Qualifiers: Diabetes mellitus type: type 2 (4) Dyspnea on exertion Code(s): R06.09 - OTHER FORMS OF DYSPNEA (5) Hypothyroid Code(s): E03.9 - HYPOTHYROIDISM, UNSPECIFIED (6) Leukopenia Code(s): D72.819 - DECREASED WHITE BLOOD CELL COUNT, UNSPECIFIED Qualifiers: Leukopenia type: other Qualified Code(s): D72.818 - Other decreased white blood cell count (7) Thrombocytopenia Code(s): D69.6 - THROMBOCYTOPENIA, UNSPECIFIED (8) UTI (urinary tract infection) Code(s): N39.0 - URINARY TRACT INFECTION, SITE NOT SPECIFIED Qualifiers: Urinary tract infection type: site unspecified Hematuria presence: without hematuria Qualified Code(s): N39.0 - Urinary tract infection, site not specified Assessment/Plan Problem List - Problems (1) UTI (urinary tract infection) Code(s): N39.0 - URINARY TRACT INFECTION, SITE NOT SPECIFIED Qualifiers: Urinary tract infection type: site unspecified Hematuria presence: without hematuria Qualified Code(s): N39.0 - Urinary tract infection, site not specified (2) Leukopenia Code(s): D72.819 - DECREASED WHITE BLOOD CELL COUNT, UNSPECIFIED Qualifiers: Leukopenia type: other Qualified Code(s): D72.818 - Other decreased white blood cell count (3) Thrombocytopenia Code(s): D69.6 - THROMBOCYTOPENIA, UNSPECIFIED (4) Asthmatic bronchitis Code(s): J45.909 - UNSPECIFIED ASTHMA, UNCOMPLICATED (5) Diabetes Code(s): E11.9 - TYPE 2 DIABETES MELLITUS WITHOUT COMPLICATIONS Qualifiers: Diabetes mellitus type: type 2 (6) Hypothyroid Code(s): E03.9 - HYPOTHYROIDISM, UNSPECIFIED Assessment/Plan UTI Leukopenia/Thrombocytopenia Asthmatic Bronchitis exacerbation DM Hypothyroidism - inhaled bronchodilators - systemic steroids x 24hrs - antibiotics for UTI - f/u cultures - monitor CBC, hematology work up in progress - DVT prophylaxis DR LOVELACE
[2016-11-12] MEDS: BUDESONIDE/FORMETEROL FUMARATE 160/4.5 mcg INHALER IH SCH ×2 (13:58→22:12)
[2016-11-12] MEDS: methylPREDNISolone NA SUCC 40 MG/1 ML VIAL IVPB SCH ×3 (13:59→22:10)
--- NOTE | 2016-11-12 19:20 | PN ---
Progress Note (short form) - Note Progress Note: Patient seen and examined Denies any complaints Last Vital Signs Temp Pulse Resp BP Pulse Ox 98.5 F 77 20 135/67 95 11/12/16 19:00 11/12/16 19:00 11/12/16 19:00 11/12/16 19:00 11/12/16 09:00 HEENT: SHAWN, EOM Intact Oropharynx: No thrush, No mucositis Cor: RSR, No murmurs, No gallops Lungs: Clear to P&A Abd: Soft, Normal bowel sounds, No organomegaly Ext:No significant edema breast exam--no masses felt Abnormal Lab Results 11/12/16 11/12/16 06:35 08:00 WBC 2.1 L RBC 3.59 L Plt Count 35 L* Monocytes % 11.8 H Random Glucose 117 H Calcium 8.2 L AST 63 H Total Protein 6.2 L Albumin 3.1 L Serum Folate 38 H Current Medications Albuterol/Ipratropium (Duoneb -) 1 amp NEB QIDR [facility] Last Admin: 11/12/16 18:10 Dose: 1 amp Budesonide/Formoterol Fumarate (Symbicort 160/4.5mcg -) 2 puff IH BID [facility] Last Admin: 11/12/16 13:58 Dose: 2 puff Pantoprazole Sodium (Protonix 40mg Ivpb (Pre-Docked)) 100 mls @ 200 mls/hr IVPB DAILY [facility] Last Admin: 11/12/16 09:05 Dose: 200 mls/hr Sodium Chloride (Normal Saline -) 1,000 mls @ 100 mls/hr IV ASDIR [facility] Last Admin: 11/12/16 13:59 Dose: Not Given Insulin Aspart (Novolog Vial Sliding Scale -) 1 vial SQ ACHS [facility] PRN Reason: Protocol Last Admin: 11/12/16 16:54 Dose: 2 units Levothyroxine Sodium (Synthroid -) 75 mcg PO DAILY@0700 [facility] Last Admin: 11/12/16 06:13 Dose: 75 mcg Methylprednisolone Sodium Succinate (Solu-Medrol -) 40 mg IVPB Q6H-IV [facility] Last Admin: 11/12/16 14:53 Dose: Not Given Propranolol HCl (Inderal -) 80 mg PO HS [facility] A/P 71 y/o patient with h/o chronic liver disease, splenomegaly, pancytopenia admitted with atypical chest pain, cough CT a/p -- liver with nodularity and abnormal signal. splenomegaly CT chest --nl lungs. 7mm density in rt. hepatic lobe inf. will check u/s Pancytopenia --due to cirrhosis/liver disease worsened by viral illness. Flowcytometry done outpatient was normal discussed with Dr. Nye and Dr. correa abnormal mammogram -- [facility] Biopsy to be considered after review of films. will need platelet transfusion pre biopsy
[2016-11-12] MEDS ORDERED: PROPRANOLOL HCL 40 MG TABLET PO SCH (22:00)
[2016-11-13] MEDS: ALBUTEROL SO4 2.5/IPRATROPIUM 0.5 INH SOL 3 ML VIAL.NEB. NEB SCH ×2 (00:22→06:34)
[2016-11-13] MEDS: methylPREDNISolone NA SUCC 40 MG/1 ML VIAL IVPB SCH ×2 (02:09→10:44)
[2016-11-13] MEDS: INSULIN SLIDING SCALE (NOVOLOG) 1 VIAL SQ SCH ×2 (07:11→12:12)
[2016-11-13] MEDS: LEVOTHYROXINE NA 75 MCG TABLET (FP) PO SCH (07:12)
[2016-11-13 07:47] VITALS: TEMP 97.7
--- NOTE | 2016-11-13 09:27 | DS ---
Physical Examination Vital Signs: Vital Signs Temperature 97.7 F 11/13/16 06:00 Pulse Rate 68 11/13/16 06:00 Respiratory Rate 20 11/13/16 06:00 Blood Pressure 141/85 11/13/16 06:00 O2 Sat by Pulse Oximetry (%) 96 11/12/16 22:00 Constitutional: Yes: Calm Respiratory: Yes: Rhonchi (scattered) Gastrointestinal: Yes: Normal Bowel Sounds, Soft Edema: No Neurological: Yes: Alert, Oriented Labs: CBC, BMP 11/12/16 08:00 Discharge Summary Reason For Visit: LEUKOPENIA,THROMBOCYTOPENIA,UTI Current Active Problems Asthmatic bronchitis (Acute) Breast mass (Acute) Diabetes (Acute) Dyspnea on exertion (Acute) Hypothyroid (Acute) Leukopenia (Acute) Occult blood positive stool (Acute) Thrombocytopenia (Acute) UTI (urinary tract infection) (Acute) Hospital Course: PCP: Anam Faith I - Admission Chief Complaint: sent inby PMD for abnormal blod work History of Present Illness: The patient is a 71 year old female, with a significant past medical history of diabetes and hypothyroidism, who presents to the emergency department sent in by PCP for likely admission to the hospital due to low platelets on recent bloodwork. The patient reports that she is currently being evaluated by Dr. Johnson (oncologist) for a right breast mass. She reports that she saw Dr. Johnson last week and had bloodwork done, which revealed low platelets. The patient additionally admits to one week of chest pain on exertion with associated dyspnea on exertion. The patient describes her chest pain as tight. She also reports a mild, dry cough for the past day and reports generalized weakness but denies feeling lightheaded or any syncopal episodes. The patient denies fever, chills, nausea, vomiting, diarrhea, melena or dysuria. Allergies: Codeine Past Surgical History: Cholecystectomy Family History: Extensive cardiac issues Social History: Non smoker. Denies alcohol or drug use. PCP: Dr. Anam Faith per patient she complaining of right sided cva tenderss- and last nite she reporst feeling very hot. in ER Noted to have UTI,low wbc and low platelet count 1: asthmatic bronchtis: steroids iv now change to posteroid taper and bronchodilators,po ceftin 500mg po bid for [address] chest noted hepatic lesion, abnormal mamogram at [facility] needs to get report and then schedule breast biopsy at [facility] will need platelet transfusion prior to it thromobytopenia;heme on board will need transfusion prior to procedure chronic liver disease and spleenomegaly low platelet seen by cardio for RHODES echo done hypothyroid on synthroid\ right breast mass: needs to shcedule outpatient biopsy and prior platelet prior to it - Instructions Diet, Activity, Other Instructions: get mamogram report from [facility] and then schedule breast biopsy and will need platelet transfusion prior to biopsy ceftin po bid for 5 days predisone taper protonix po daily while on steroids Referrals: Anam Faith MD [Primary Care Provider] - 1 Week Disposition: HOME - Home Medications Comprehensive Discharge Medication List: Ambulatory Orders Levothyroxine [Synthroid] 75 mcg PO DAILY 05/12/13 Propranolol HCl 80 mg PO HS 05/12/13 Linagliptin [Tradjenta] 5 mg PO DAILY 04/11/16
--- NOTE | 2016-11-13 09:33 | PN ---
Progress Note, Physician Chief Complaint: ID Feeling better still has couph No fever - Current Medication List Current Medications: Active Medications Albuterol/Ipratropium (Duoneb -) 1 amp NEB QIDR [facility] Last Admin: 11/13/16 06:34 Dose: 1 amp Budesonide/Formoterol Fumarate (Symbicort 160/4.5mcg -) 2 puff IH BID [facility] Last Admin: 11/12/16 22:12 Dose: 2 puff Sodium Chloride (Normal Saline -) 1,000 mls @ 100 mls/hr IV ASDIR [facility] Last Admin: 11/12/16 22:15 Dose: 100 mls/hr Insulin Aspart (Novolog Vial Sliding Scale -) 1 vial SQ ACHS [facility] PRN Reason: Protocol Last Admin: 11/13/16 07:11 Dose: Not Given Levothyroxine Sodium (Synthroid -) 75 mcg PO DAILY@0700 [facility] Last Admin: 11/13/16 07:12 Dose: 75 mcg Methylprednisolone Sodium Succinate (Solu-Medrol -) 40 mg IVPB Q6H-IV [facility] Last Admin: 11/13/16 02:09 Dose: 40 mg Pantoprazole Sodium (Protonix -) 40 mg PO ONCE ONE Stop: 11/13/16 09:19 Propranolol HCl (Inderal -) 80 mg PO HS [facility] Last Admin: 11/12/16 22:10 Dose: 80 mg - Objective Vital Signs: Vital Signs Temperature 97.7 F 11/13/16 06:00 Pulse Rate 68 11/13/16 06:00 Respiratory Rate 20 11/13/16 06:00 Blood Pressure 141/85 11/13/16 06:00 O2 Sat by Pulse Oximetry (%) 96 11/12/16 22:00 Constitutional: Yes: Well Nourished, No Distress HENT: Yes: WNL, Atraumatic Neck: Yes: WNL, Supple Cardiovascular: Yes: Regular Rate and Rhythm, S1, S2 Respiratory: Yes: Rhonchi, Wheezes Gastrointestinal: Yes: Soft. No: Tenderness, Tenderness, Epigastrium Edema: No Labs: CBC, BMP 11/12/16 08:00 INR, PTT INR 1.26 (0.82-1.09) H 11/11/16 07:00 Fibrinogen 279.0 mg/dL (238-498) 11/11/16 07:00 Assessment/Plan Assessment Asthmatic bronchitis ? infection component Plan Discharge planning on steroids and advise Ceftin 500mg bid 7 days Radha HAAS
[2016-11-13] MEDS ORDERED: PANTOPRAZOLE 40 MG TABLET (FP) PO ONE (10:00)
[2016-11-13] MEDS: BUDESONIDE/FORMETEROL FUMARATE 160/4.5 mcg INHALER IH SCH (10:44)
--- NOTE | 2016-11-13 11:42 | PN ---
Progress Note, Physician History of Present Illness: seen and examined today in [facility]. no overnight events. no new complaints. pt being discharged today. - Current Medication List Current Medications: Active Medications Albuterol/Ipratropium (Duoneb -) 1 amp NEB QIDR [facility] Last Admin: 11/13/16 06:34 Dose: 1 amp Budesonide/Formoterol Fumarate (Symbicort 160/4.5mcg -) 2 puff IH BID [facility] Last Admin: 11/13/16 10:44 Dose: 2 puff Insulin Aspart (Novolog Vial Sliding Scale -) 1 vial SQ ACHS [facility] PRN Reason: Protocol Last Admin: 11/13/16 07:11 Dose: Not Given Levothyroxine Sodium (Synthroid -) 75 mcg PO DAILY@0700 [facility] Last Admin: 11/13/16 07:12 Dose: 75 mcg Methylprednisolone Sodium Succinate (Solu-Medrol -) 40 mg IVPB Q6H-IV [facility] Last Admin: 11/13/16 10:44 Dose: 40 mg Propranolol HCl (Inderal -) 80 mg PO HS [facility] Last Admin: 11/12/16 22:10 Dose: 80 mg - Objective Vital Signs: Vital Signs Temperature 97.7 F 11/13/16 06:00 Pulse Rate 68 11/13/16 06:00 Respiratory Rate 20 11/13/16 06:00 Blood Pressure 141/85 11/13/16 06:00 O2 Sat by Pulse Oximetry (%) 96 11/12/16 22:00 Constitutional: Yes: Well Nourished, No Distress, Calm Eyes: Yes: WNL, Conjunctiva Clear, EOM Intact, PERRL HENT: Yes: WNL, Atraumatic, Normocephalic Neck: Yes: WNL, Supple, Trachea Midline Cardiovascular: Yes: WNL, Regular Rate and Rhythm, S1, S2. No: Bradycardia, Tachycardia, Pulse Irregular, Bruit, JVD, Gallop, Murmur, Rub, S3, S4, Varicosities Respiratory: Yes: Regular, Wheezes. No: Rales, Rhonchi, SOB Gastrointestinal: Yes: WNL, Normal Bowel Sounds, Soft. No: Distention, Tenderness Musculoskeletal: Yes: WNL Extremities: Yes: WNL Edema: No Peripheral Pulses WNL: Yes Peripheral Pulses: Left Doralis Pedis: 2+, Right Dorsalis Pedis: 2+ Integumentary: Yes: WNL Neurological: Yes: WNL, Alert, Oriented, Cran Nerves II-XII Intact ...Motor Strength: WNL Psychiatric: Yes: WNL, Alert, Oriented Labs: CBC, BMP 11/12/16 08:00 INR, PTT INR 1.26 (0.82-1.09) H 11/11/16 07:00 Fibrinogen 279.0 mg/dL (238-498) 11/11/16 07:00 - ....Imaging Chest X-ray: Report Reviewed, Image Reviewed EKG: Report Reviewed, Image Reviewed Other: Report Reviewed, Image Reviewed Problem List - Problems (1) Asthmatic bronchitis Code(s): J45.909 - UNSPECIFIED ASTHMA, UNCOMPLICATED (2) Breast mass Code(s): N63 - UNSPECIFIED LUMP IN BREAST (3) Diabetes Code(s): E11.9 - TYPE 2 DIABETES MELLITUS WITHOUT COMPLICATIONS Qualifiers: Diabetes mellitus type: type 2 (4) Dyspnea on exertion Code(s): R06.09 - OTHER FORMS OF DYSPNEA (5) Hypothyroid Code(s): E03.9 - HYPOTHYROIDISM, UNSPECIFIED (6) Leukopenia Code(s): D72.819 - DECREASED WHITE BLOOD CELL COUNT, UNSPECIFIED Qualifiers: Leukopenia type: other Qualified Code(s): D72.818 - Other decreased white blood cell count (7) Occult blood positive stool Code(s): R19.5 - OTHER FECAL ABNORMALITIES (8) Thrombocytopenia Code(s): D69.6 - THROMBOCYTOPENIA, UNSPECIFIED Assessment/Plan IMP: Breast mass Thrombocytopenia Splenomegaly Cirrhosis Suspected viral upper respiratory infection REC: Recent cardiac work up done to evaluate chronic cardenas was unremarkable Cardiac cath 2012 was unremarkable (by report of PMD). Previous trivial pericardial effusion not seen on echo this admission No additional inpatient cardiac work up needed at this point, recommend outpatient follow up
[2016-11-13 12:43] VITALS: BP 133/67; PULSE 73
[2016-11-14 00:06] LABS: HEP B SURFACE AB Non Reactive (.)
[2016-11-15 08:07] LABS: HEMATOCRIT 38.3 % (34.0-46.6)
== END 2016-11-13 11:55 | disposition home or self-care (01) | DRG 202 ==
LOC: JER 09:01 → JERBED 10:58 → J5S 11-11 13:41
PROVIDERS: ADMIT Family Medicine; ATTEND Family Medicine
DX: J45.901 Unspecified asthma with (acute) exacerbation (principal); N39.0 Urinary tract infection, site not specified; D61.818 Other pancytopenia; D69.6 Thrombocytopenia, unspecified; E11.9 Type 2 diabetes mellitus without complications; E03.9 Hypothyroidism, unspecified; D72.819 Decreased white blood cell count, unspecified; N63 Unspecified lump in breast; R16.1 Splenomegaly, not elsewhere classified
CPT/HCPCS: 36415; 71020-TC; 71260-TC; 74176-TC; 76775-TC; 80053; 81003; 81015; 82272; 82550; 82553; 82607; 82728; 82746; 82747; 83036; 83540; 83550; 83735; 84100; 84443; 84484; 85014; 85025; 85384; 85610; 85651; 85730; 86038; 86140; 86704; 86706; 86708; 86803; 86850; 86900; 86901; 87040; 87086; 87254; 87340; 87389; 87804; 93005; 93010; 93306-TC; 94640; 99285-25

== ENCOUNTER 2016-12-01 10:36 | Day surgery (SDC) | payer OTHER ==
[2016-12-01 11:47] LABS: BASOPHIL 0.6 % (0-2.0); EOSINOPHIL 2.8 % (0-4.5); MCH 32.2 pg (25.7-33.7); MCHC 34.2 g/dl (32.0-36.0); MEAN CELL VOLUME 94.2 fl (80-96); MEAN PLT VOLUME 10.3 fl (7.5-11.1); NEUTROPHILS 71.9 % (42.8-82.8); PLATELET COUNT 53 K/MM3 (134-434); RDW 13.9 % (11.6-15.6); WHITE BLOOD COUNT 3.1 K/mm3 (4.0-10.0)
[2016-12-01 13:09] LABS: INR 1.27 (0.82-1.09)
[2016-12-01 13:12] LABS: ACTIVATED PTT 34.2 SECONDS (26.9-34.4)
[2016-12-01] MEDS ORDERED: methylPREDNISolone NA SUCC 125 MG/2 ML VIAL IVPB ONE (13:31)
[2016-12-01] MEDS ORDERED: ALBUTEROL SO4 0.083% IH SOL 2.5 MG/3 ML VIAL.NEB. NEB PRN (13:37)
--- NOTE | 2016-12-01 14:02 | HP ---
Satellite [facility] - Chief Complaint Chief Complaint: Patient here for elective platelet transfusion prior to breast biopsy. PAtient with cirrhosis of liver/ rt. breast mass. Platelet count [id number]. Was getting platelet transfusion prior to procedure History Source: Patient - Past Medical History Allergies/Adverse Reactions: Allergies Allergy/AdvReac Type Severity Reaction Status Date / Time codeine Allergy Severe Rash Verified 11/10/16 09:07 Pulmonary: Yes: Asthma Heme/Onc: Yes: Other (right breast mass) Endocrine: Yes: Diabetes Mellitus, Hypothyroidism - Current Medications Current Medications: Home Medications Medication Instructions Recorded Levothyroxine [Synthroid -] 75 mcg PO DAILY 05/12/13 Propranolol HCl 80 mg PO HS 05/12/13 Linagliptin [Tradjenta] 5 mg PO DAILY 04/11/16 Albuterol 2.5/Ipratropium 0.5 1 amp NEB QIDR #30 amp 11/13/16 [Duoneb -] Budesonide/Formeterol Fumarate 2 puff IH BID #1 inhaler 11/13/16 [SYMBICORT 160/4.5mcg -] Cefuroxime Axetil [Ceftin -] 500 mg PO Q12H #10 tablet 11/13/16 Pantoprazole Sodium [Protonix -] 40 mg PO DAILY #7 tablet.ec 11/13/16 Prednisone [Deltasone -] 10 mg PO DAILY #30 tablet 11/13/16 Satellite Physical Exam - Physical Examination General Appearance: Well Nourished, Alert & Oriented x3 Lung: Clear to auscultation, Normal air movement Heart: Regular rate & rhythm, Normal S1, Normal S2 Abdomen: Soft, No tenderness, Normal bowel sounds Extremities: No edema Neurological: Intact Satellite Impression/Plan - Impression/Plan Impression: 71 y/o patient with cirrhosis comes in for platelet transfusion prior to breast biopsy. Patient developed coughing and chest tightness. Improved with solumedrol/benadryl. transfusion reaction work up was ordered. will get satt EKG/cardiac enzymes. Cardiology f/u. will monitor overnight for observation. discussed with Dr. Yee. Discussed with cardiology
[2016-12-01 14:18] LABS: BASOPHIL 0.3 % (0-2.0); EOSINOPHIL 2.4 % (0-4.5); MCH 31.9 pg (25.7-33.7); MCHC 33.9 g/dl (32.0-36.0); MEAN CELL VOLUME 94.2 fl (80-96); NEUTROPHILS 71.4 % (42.8-82.8); PLATELET COUNT 59 K/MM3 (134-434); RDW 14.2 % (11.6-15.6); WHITE BLOOD COUNT 3.5 K/mm3 (4.0-10.0)
[2016-12-01 14:41] LABS: URINE APPEARANCE CLEAR; URINE BILIRUBIN NEGATIVE (NEGATIVE); URINE BLOOD NEGATIVE (NEGATIVE); URINE COLOR YELLOW; URINE GLUCOSE (UA) 1+ (NEGATIVE); URINE KETONE NEGATIVE (NEGATIVE); URINE NITRITE NEGATIVE (NEGATIVE); URINE PROTEIN NEGATIVE (NEGATIVE); URINE UROBILINOGEN 2.0 E.U/dl E.U./dl (0.2-1.0)
[2016-12-01 14:43] LABS: ALBUMIN 3.5 g/dl (3.4-5.0); ANION GAP 11 (8-16); BILIRUBIN,TOTAL 1.2 mg/dL (0.2-1.0); CO2 29 mmol/L (21-32); CREATININE 0.8 mg/dL (0.55-1.02); GLUCOSE,RANDOM 207 mg/dL (74-106); SGOT/AST 46 U/L (15-37); SGPT/ALT 44 U/L (12-78)
[2016-12-01 14:45] LABS: URINE LEUK ESTERASE TRACE (NEGATIVE)
[2016-12-01 14:46] LABS: ALK PHOS 67 U/L (45-117); TROPONIN I < 0.02 ng/ml (0.00-0.05)
[2016-12-01 14:48] LABS: URINE MUCUS RARE; URINE RBC <1 /hpf (0-3); URINE WBC 5 /hpf (3-5)
--- NOTE | 2016-12-01 14:55 | CON.CARD ---
Cardiology Consult (text) - Consultation Consultation Note: Asked to see patient for chest pain evaluation following transfusion. However, patient has a turkish rubber already, Dr. Amaya. She reports that she saw him [address] Ramírez was noted to contact Dr. Amaya for cardiology consultation.
[2016-12-01] MEDS ORDERED: PT OWN MED DRAWER 7, Y5N ONE (18:24)
[2016-12-01] MEDS ORDERED: ACETAMINOPHEN 325 MG TABLET (FP) PO PRN (19:53)
[2016-12-01 20:59] LABS: TROPONIN I < 0.02 ng/ml (0.00-0.05)
[2016-12-01] MEDS ORDERED: PROPRANOLOL HCL 40 MG TABLET PO SCH (21:00)
[2016-12-01] MEDS: BUDESONIDE/FORMETEROL FUMARATE 160/4.5 mcg INHALER IH SCH (21:51)
--- NOTE | 2016-12-02 00:20 | EKG ---
Test Reason : Blood Pressure : / mmHG Vent. Rate : 074 BPM Atrial Rate : 074 BPM P-R Int : 184 ms QRS Dur : 084 ms QT Int : 424 ms P-R-T Axes : 061 042 058 degrees QTc Int : 470 ms NORMAL SINUS RHYTHM NORMAL ECG WHEN COMPARED WITH ECG OF 11-NOV-2016 10:28, NO SIGNIFICANT CHANGE WAS FOUND Confirmed by BANDAR ANDERSON MD ([id number]) on 12/02/2016 12:20:14 AM Referred By: MARIA R FINE Confirmed By:BANDAR ANDERSON MD
[2016-12-02] MEDS ORDERED: LEVOTHYROXINE NA 75 MCG TABLET (FP) PO SCH (07:00)
[2016-12-02 07:30] LABS: BASOPHIL 0.1 % (0-2.0); MCH 32.4 pg (25.7-33.7); MCHC 34.7 g/dl (32.0-36.0); MEAN CELL VOLUME 93.4 fl (80-96); MEAN PLT VOLUME 9.7 fl (7.5-11.1); NEUTROPHILS 89.7 % (42.8-82.8); PLATELET COUNT 49 K/MM3 (134-434); WHITE BLOOD COUNT 4.7 K/mm3 (4.0-10.0)
[2016-12-02 07:47] LABS: ALBUMIN 3.2 g/dl (3.4-5.0); ALK PHOS 56 U/L (45-117); ANION GAP 10 (8-16); BILIRUBIN,TOTAL 1.1 mg/dL (0.2-1.0); CALCIUM 9.2 mg/dL (8.5-10.1); CO2 24 mmol/L (21-32); CREATININE 0.7 mg/dL (0.55-1.02); GLUCOSE,RANDOM 241 mg/dL (74-106); SGOT/AST 35 U/L (15-37); SGPT/ALT 40 U/L (12-78); TOT PROT 6.6 g/dl (6.4-8.2)
[2016-12-02 08:27] LABS: TROPONIN I < 0.02 ng/ml (0.00-0.05)
[2016-12-02] MEDS ORDERED: predniSONE 10 MG TABLET (UD) PO SCH (10:00)
[2016-12-02] MEDS ORDERED: PANTOPRAZOLE 40 MG TABLET (FP) PO SCH (10:00)
--- NOTE | 2016-12-02 10:11 | PN ---
Progress Note, Physician Chief Complaint: 71F known to us from office and prior admissions: PMHx breast mass, awaiting bx , cirrhosis with splenomegaly, thrombocytopenia, normal cors on cath 2013 with recent negative stress test (within year) was admitted for platelet transfusion yesterday prior to breast bx. During transfusion, developed cough, chest tightness and mild SOB which improved after Benadryl. Denies any recurrence. Denies SOB. Denies chest pressure overnight No palps No edema. No dizziness No neuro sx History of Present Illness: 2 cardiac enzymes negative; ECG NSR at 64bpm with no acute ST changes - Current Medication List Current Medications: Active Medications Acetaminophen (Tylenol -) 650 mg PO Q6H PRN PRN Reason: FEVER OR PAIN Last Admin: 12/01/16 20:20 Dose: 650 mg Albuterol Sulfate (Ventolin 0.083% Nebulizer Soln -) 1 amp NEB Q6H PRN PRN Reason: SHORT OF BREATH/WHEEZING Last Admin: 12/01/16 14:18 Dose: 1 amp Budesonide/Formoterol Fumarate (Symbicort 160/4.5mcg -) 2 puff IH BID [facility] Last Admin: 12/01/16 21:51 Dose: 2 puff Levothyroxine Sodium (Synthroid -) 75 mcg PO DAILY@0700 [facility] Last Admin: 12/02/16 06:19 Dose: 75 mcg Pantoprazole Sodium (Protonix -) 40 mg PO DAILY [facility] Propranolol HCl (Inderal -) 80 mg PO DAILY@2100 [facility] Last Admin: 12/01/16 20:20 Dose: 80 mg - Objective Vital Signs: Vital Signs Temperature 97.7 F 12/02/16 05:58 Pulse Rate 80 12/02/16 05:58 Respiratory Rate 18 12/02/16 05:58 Blood Pressure 126/89 12/02/16 05:58 O2 Sat by Pulse Oximetry (%) 98 12/01/16 21:00 Constitutional: Yes: No Distress Eyes: Yes: Conjunctiva Clear Cardiovascular: Yes: Regular Rate and Rhythm Respiratory: Yes: CTA Bilaterally Gastrointestinal: Yes: Soft Edema: No Neurological: Yes: Alert, Oriented ...Motor Strength: WNL Labs: CBC, BMP 12/02/16 06:00 12/02/16 06:00 INR, PTT INR 1.27 (0.82-1.09) H 12/01/16 12:20 Laboratory Tests 12/01/16 12/02/16 12/02/16 13:55 06:00 06:00 WBC 4.7 D Hgb 11.6 Hct 33.3 Plt Count 49 L Sodium 141 Potassium 3.9 BUN 16 D Creatinine 0.7 Creatine Kinase 71 Troponin I < 0.02 12/02/16 06:30 WBC Hgb Hct Plt Count Sodium Potassium BUN Creatinine Creatine Kinase 55 Troponin I < 0.02 - ....Imaging EKG: Image Reviewed Assessment/Plan IMP: Probable/suspected transfusion reaction Thrombocytopenia Splenomegaly Breast mass REC: Symptoms began during transfusion and quickly resolved with cessation of transfusion and admin of Benadryl etc Likely transfusion reaction. No evidence of ACS. Recommend premedicating in future and protocols for platelet transfusion as per Heme.
[2016-12-02] MEDS ORDERED: PT OWN MED DRAWER 7, Y5N ONE (10:14)
[2016-12-02] MEDS: BUDESONIDE/FORMETEROL FUMARATE 160/4.5 mcg INHALER IH SCH (10:14)
--- NOTE | 2016-12-02 11:32 | PN ---
Progress Note, Physician - Current Medication List Current Medications: Active Medications Acetaminophen (Tylenol -) 650 mg PO Q6H PRN PRN Reason: FEVER OR PAIN Last Admin: 12/01/16 20:20 Dose: 650 mg Albuterol Sulfate (Ventolin 0.083% Nebulizer Soln -) 1 amp NEB Q6H PRN PRN Reason: SHORT OF BREATH/WHEEZING Last Admin: 12/01/16 14:18 Dose: 1 amp Budesonide/Formoterol Fumarate (Symbicort 160/4.5mcg -) 2 puff IH BID [facility] Last Admin: 12/02/16 10:14 Dose: 2 puff Levothyroxine Sodium (Synthroid -) 75 mcg PO DAILY@0700 [facility] Last Admin: 12/02/16 06:19 Dose: 75 mcg Pantoprazole Sodium (Protonix -) 40 mg PO DAILY [facility] Last Admin: 12/02/16 10:13 Dose: 40 mg Propranolol HCl (Inderal -) 80 mg PO DAILY@2100 [facility] Last Admin: 12/01/16 20:20 Dose: 80 mg - Objective Vital Signs: Vital Signs Temperature 97.7 F 12/02/16 05:58 Pulse Rate 80 12/02/16 05:58 Respiratory Rate 18 12/02/16 05:58 Blood Pressure 126/89 12/02/16 05:58 O2 Sat by Pulse Oximetry (%) 98 12/01/16 21:00 Cardiovascular: Yes: Regular Rate and Rhythm Respiratory: Yes: Regular, CTA Bilaterally Gastrointestinal: Yes: Normal Bowel Sounds, Soft Labs: CBC, BMP 12/02/16 06:00 12/02/16 06:00 INR, PTT INR 1.27 (0.82-1.09) H 12/01/16 12:20 Assessment/Plan 71 year old female, with a significant past medical history of cirrhosis of liver, diabetes and hypothyroidism, who was admitted to the hospital due to low platelets and for breast biopsy. Yesterday had chest pain during transfusion . The patient describes her chest pain as tightness which has resolved Allergies: Codeine Past Surgical History: Cholecystectomy Family History: Extensive cardiac issues Social History: Non smoker. Denies alcohol or drug use. PCP: Dr. Anam Faith i thromobytopenia;heme on board will need transfusion prior to procedure chronic liver disease and spleenomegaly low platelet seen by cardio for chest pain hypothyroid on synthroid right breast mass: needs biopsy and will get prior platelet prior to procedure- -d/w dr strauss will premedicate
[2016-12-02 14:32] VITALS: BP 137/64; PULSE 73; TEMP 97.8
--- NOTE | 2016-12-02 17:33 | PN ---
Progress Note (short form) - Note Progress Note: Patient seen and examined S/P transfusion reaction. Decision to with-hold breast biopsy in house and to with hold platelets in view of reaction. Surgery feels outpatient procedure can be performed without pre procedure platelets. If surgery decides that platelets are inadequate for biopsy, patient will need be pre-medicated with benadryl and steroids. If biopsy is performed in office, and patient has excess bleeding - to come to hospital for platelets with appropriate pre medication. Yield however was only 6 K WITH SLIGHTLY MORE THAN ONE UNIT OF PLATELETS. THIS SUGGESTS SIGNIFICANT SEQUESTRATION OF PLATELETS. Last Vital Signs Temp Pulse Resp BP Pulse Ox 97.8 F 73 20 137/64 98 12/02/16 14:30 12/02/16 14:30 12/02/16 14:30 12/02/16 14:30 12/01/16 21:00 HEENT: SHAWN, EOM Intact Cor: RSR, No murmurs, No gallops Lungs: Clear to P&A Abd: Soft, Normal bowel sounds, No organomegaly Ext:No significant edema Skin: No rashes, Integument intact CBC, BMP 12/02/16 06:00 12/02/16 06:00 Current Medications Generic Name Dose Route Start Last Admin Trade Name Freq PRN Reason Stop Dose Admin Acetaminophen 650 mg 12/01/16 19:53 12/01/16 20:20 Tylenol - PO 650 mg Q6H PRN Administration FEVER OR PAIN Albuterol Sulfate 1 amp 12/01/16 13:37 12/01/16 14:18 Ventolin 0.083% Nebulizer Soln - NEB 1 amp Q6H PRN Administration SHORT OF BREATH/WHEEZING Budesonide/Formoterol Fumarate 2 puff 12/01/16 22:00 12/02/16 10:14 Symbicort 160/4.5mcg - IH 2 puff BID [facility] Administration Levothyroxine Sodium 75 mcg 12/02/16 07:00 12/02/16 06:19 Synthroid - PO 75 mcg DAILY@0700 [facility] Administration Pantoprazole Sodium 40 mg 12/02/16 10:00 12/02/16 10:13 Protonix - PO 40 mg DAILY [facility] Administration Propranolol HCl 80 mg 12/01/16 21:00 12/01/16 20:20 Inderal - PO 80 mg DAILY@2100 [facility] Administration Impression:: Breast mass Cirrhosis Thrombocytopenia S/P platelet transfusion reaction Plan: Outpatient biopsy
== END 2016-12-02 06:00 | disposition home or self-care (01) ==
LOC: JBLOOD 10:36 → J7W 10:37 → JBLOOD 12-02 06:00
PROVIDERS: ATTEND Internal Medicine Hematology & Oncology
PROC: 30233R1 Transfusion of Nonautologous Platelets into Peripheral Vein, Percutaneous Approach (ICD-10-PCS; principal; 2016-12-01)
DX: D69.6 Thrombocytopenia, unspecified (principal); K74.60 Unspecified cirrhosis of liver; R16.1 Splenomegaly, not elsewhere classified
CPT/HCPCS: 36415; 36430; 71010-TC; 74176-TC; 80053; 81003; 81015; 82550; 82553; 84484; 85025; 85610; 85730; 86078; 86850; 86900; 86901; 87040; 87086; 93005; 93010; 94640; P9034; P9038

== ENCOUNTER 2017-12-21 18:47 | Emergency (ER) | payer OTHER ==
[2017-12-21 18:51] VITALS: TEMP 97.8; BMI 28.8
[2017-12-21 19:40] LABS: BASO % 0.3 % (0-2.0); EOS % 2.5 % (0-4.5); HEMATOCRIT 37.3 % (32.4-45.2); HEMOGLOBIN 12.8 GM/dL (10.7-15.3); LYMPH % 21.2 % (8-40); MCH 32.5 pg (25.7-33.7); MCHC 34.2 g/dl (32.0-36.0); MEAN CELL VOLUME 94.9 fl (80-96); MEAN PLT VOLUME 11.1 fl (7.5-11.1); MONO % 10.1 % (3.8-10.2); NEUT % 65.9 % (42.8-82.8); PLATELET COUNT 45 K/MM3 (134-434); RBC 3.93 M/mm3 (3.60-5.2); RDW 14.4 % (11.6-15.6); WHITE BLOOD COUNT 3.3 K/mm3 (4.0-10.0)
[2017-12-21 20:10] LABS: ALBUMIN 3.6 g/dl (3.4-5.0); ANION GAP 8 (8-16); BLOOD UREA NITROGEN 9 mg/dL (7-18); CALCIUM 8.4 mg/dL (8.5-10.1); CHLORIDE 105 mmol/L (98-107); CO2 28 mmol/L (21-32); CREATININE 0.9 mg/dL (0.55-1.02); GLUCOSE,RANDOM 175 mg/dL (74-106); POTASSIUM 4.2 mmol/L (3.5-5.1); SGOT/AST 47 U/L (15-37); SGPT/ALT 40 U/L (12-78); SODIUM 141 mmol/L (136-145)
--- NOTE | 2017-12-21 20:10 | PDOC ---
History of Present Illness - General History Source: Patient, Family, Old Records Exam Limitations: No Limitations - History of Present Illness Initial Comments: 12/21/17 20:12 The patient is a 72 year old female, with a significant past medical history of kidney stones (10 years), diabetes, liver cirrhosis, hypothyroidism, s/p thyroidectomy and cholecystectomy, who presents to the emergency department with thombrocytopenia. She reports that she was called by her PMD advising her to come to the ED due to "undetectable platelet count". On presentation the patient has no complaints. On presentation it is noted that the patient has been dealing with low platelets for the past year. The patient denies chest pain, shortness of breath, headache and dizziness. Denies fever, chills, nausea, vomit, diarrhea and constipation. Denies dysuria, frequency, urgency and hematuria. Allergies: Codeine Past Surgical History: Cholecystectomy, thyroidectomy Family History: Extensive cardiac issues Social History: Non smoker. Denies alcohol or drug use. PCP: Dr. Anam Faith Ceo And President - Dr. Ramírez GI: Dr. Brush Urologist - Dr. Anderson <Jefry Dean - Last Filed: 12/21/17 20:11> <Ramonita Gould - Last Filed: 12/21/17 20:56> - General Chief Complaint: Revisit, Lab Variance Stated Complaint: PCP SENT Time Seen by Provider: 12/21/17 19:10 Past History <Jefry Dean - Last Filed: 12/21/17 20:11> - Past Medical History Anemia: No Asthma: Yes Cancer: No Cardiac Disorders: No CVA: No COPD: No CHF: No Dementia: No Diabetes: Yes GI Disorders: Yes (GASTRITIS) Disorders: No HTN: Yes Hypercholesterolemia: No Liver Disease: Yes Seizures: No Thyroid Disease: Yes Other medical history: low platelets - Surgical History Cholecystectomy: Yes - Suicide/Smoking/Psychosocial Hx Smoking History: Never smoked Have you smoked in the past 12 months: No Information on smoking cessation initiated: No Hx Alcohol Use: No Drug/Substance Use Hx: No Substance Use Type: None <Ramonita Gould - Last Filed: 12/21/17 20:56> - Past Medical History Allergies/Adverse Reactions: Allergies Allergy/AdvReac Type Severity Reaction Status Date / Time codeine AdvReac Severe Rash Verified 12/21/17 18:48 Home Medications: Ambulatory Orders Levothyroxine [Synthroid -] 75 mcg PO DAILY 05/12/13 Propranolol HCl 80 mg PO HS 05/12/13 Albuterol 2.5/Ipratropium 0.5 [Duoneb -] 1 amp NEB QIDR #30 amp 11/13/16 Budesonide/Formeterol Fumarate [SYMBICORT 160/4.5mcg -] 2 puff IH BID #1 inhaler 11/13/16 Linagliptin/Metformin HCl [Jentadueto 2.5 mg-500 mg Tab] 1 each PO DAILY Review of Systems - Review of Systems Able to Perform ROS?: Yes Comments:: 12/21/17 20:12 GENERAL/CONSTITUTIONAL: No fever or chills. No weakness. HEAD, EYES, EARS, NOSE AND THROAT: No change in vision. No ear pain or discharge. No sore throat.- CARDIOVASCULAR: No chest pain or shortness of breath RESPIRATORY: No cough, wheezing, or hemoptysis. GASTROINTESTINAL: No nausea, vomiting, diarrhea or constipation. GENITOURINARY: No dysuria, frequency, or change in urination. MUSCULOSKELETAL: No joint or muscle swelling or pain. No neck or back pain. SKIN: No rash NEUROLOGIC: No headache, vertigo, loss of consciousness, or change in strength/ sensation. ENDOCRINE: No increased thirst. No abnormal weight change HEMATOLOGIC/LYMPHATIC: No anemia, easy bleeding, or history of blood clots. ALLERGIC/IMMUNOLOGIC: No hives or skin allergy. <Jefry Dean - Last Filed: 12/21/17 20:11> *Physical Exam - Vital Signs Last Vital Signs Temp Pulse Resp BP Pulse Ox 97.8 F 66 18 151/86 100 12/21/17 18:49 12/21/17 18:49 12/21/17 18:49 12/21/17 18:49 12/21/17 18:49 - Physical Exam Comments: 12/21/17 20:12 GENERAL: Awake, alert, and fully oriented, in no acute distress HEAD: No signs of trauma, normocephalic, atraumatic EYES: PERRLA, EOMI, sclera anicteric, conjunctiva clear ENT: Auricles normal inspection, hearing grossly normal, nares patent, oropharynx clear without exudates. Moist mucosa NECK: Normal ROM, supple, no lymphadenopathy, JVD, or masses LUNGS: No distress, speaks full sentences, clear to auscultation bilaterally HEART: Regular rate and rhythm, normal S1 and S2, no murmurs, rubs or gallops, peripheral pulses normal and equal bilaterally. ABDOMEN: Soft, nontender, normoactive bowel sounds. No guarding, no rebound. No masses EXTREMITIES : Normal inspection, Normal range of motion, no edema. No clubbing or cyanosis. NEUROLOGICAL: Cranial nerves II through XII grossly intact. Normal speech, normal gait, no focal sensorimotor deficits SKIN: Warm, Dry, normal turgor, no rashes or lesions noted <Jefry Dean - Last Filed: 12/21/17 20:11> - Vital Signs Last Vital Signs Temp Pulse Resp BP Pulse Ox 97.8 F 66 18 151/86 100 12/21/17 18:49 12/21/17 18:49 12/21/17 18:49 12/21/17 18:49 12/21/17 18:49 <Ramonita Gould - Last Filed: 12/21/17 20:56> ED Treatment Course - LABORATORY CBC & Chemistry Diagram: 12/21/17 19:00 12/21/17 19:00 - ADDITIONAL ORDERS Additional order review: 12/21/17 19:00 RBC 3.93 MCV 94.9 MCHC 34.2 RDW 14.4 MPV 11.1 D Neutrophils % 65.9 Lymphocytes % 21.2 Monocytes % 10.1 Eosinophils % 2.5 Basophils % 0.3 <Jefry Dean - Last Filed: 12/21/17 20:11> - LABORATORY CBC & Chemistry Diagram: 12/21/17 19:00 12/21/17 19:00 - ADDITIONAL ORDERS Additional order review: 12/21/17 19:00 RBC 3.93 MCV 94.9 MCHC 34.2 RDW 14.4 MPV 11.1 D Neutrophils % 65.9 Lymphocytes % 21.2 Monocytes % 10.1 Eosinophils % 2.5 Basophils % 0.3 <Ramonita Gould - Last Filed: 12/21/17 20:56> *DC/Admit/Observation/Transfer - Attestations Scribe Attestion: 02/26/18 20:11 Documentation prepared by Jefry Dean, acting as medical leader for Ramonita Gould MD <Jefry Dean - Last Filed: 12/21/17 20:11> <Ramonita Gould - Last Filed: 12/21/17 20:56> Diagnosis at time of Disposition: Thrombocytopenia - Discharge Dispostion Disposition: HOME Condition at time of disposition: Stable - Patient Instructions Printed Discharge Instructions: Platelet Count Additional Instructions: Continue following with Dr Muñiz and your flower shop laborer/designer
[2017-12-21 20:12] LABS: ALK PHOS 61 U/L (45-117); BILIRUBIN,TOTAL 1.1 mg/dL (0.2-1.0); TOT PROT 7.2 g/dl (6.4-8.2)
[2017-12-21 20:45] LABS: URINE APPEARANCE CLEAR; URINE BILIRUBIN NEGATIVE (NEGATIVE); URINE BLOOD NEGATIVE (NEGATIVE); URINE COLOR LTYELLOW; URINE GLUCOSE (UA) NEGATIVE (NEGATIVE); URINE KETONE NEGATIVE (NEGATIVE); URINE NITRITE NEGATIVE (NEGATIVE); URINE PROTEIN NEGATIVE (NEGATIVE); URINE UROBILINOGEN 4.0 E.U/dl mg/dL (0.2-1.0)
[2017-12-21 20:52] LABS: URINE LEUK ESTERASE 1+ (NEGATIVE)
[2017-12-21 20:55] LABS: EPI CELLS RARE /HPF (FEW); URINE BACTERIA RARE /hpf (NONE SEEN); URINE MUCUS RARE
[2017-12-21 20:58] VITALS: BP 133/73; PULSE 67
== END 2017-12-21 21:04 | disposition home or self-care (01) ==
LOC: JER 18:47
DX: D69.6 Thrombocytopenia, unspecified (principal); E11.9 Type 2 diabetes mellitus without complications; K74.60 Unspecified cirrhosis of liver; Z87.442 Personal history of urinary calculi; Z90.49 Acquired absence of other specified parts of digestive tract; E89.0 Postprocedural hypothyroidism; Z79.84 Long term (current) use of oral hypoglycemic drugs
CPT/HCPCS: 36415; 80053; 81003; 81015; 85025; 99281-25

== ENCOUNTER 2018-01-10 21:56 | Emergency (ER) | payer OTHER ==
[2018-01-10 22:05] VITALS: PULSE 75; TEMP 98; BMI 29.0
[2018-01-10 22:06] VITALS: BP 151/74
--- NOTE | 2018-01-10 22:50 | PDOC ---
History of Present Illness - General Chief Complaint: Pain, Acute Stated Complaint: RIGHT KNEE PAIN Time Seen by Provider: 01/10/18 22:43 History Source: Patient Exam Limitations: No Limitations - History of Present Illness Initial Comments: 01/10/18 22:43 72-year-old woman past medical history of hypertension, hypothyroidism, kidney stones, thrombocytopenia, and liver disease who presents to emergency room with a atraumatic right knee pain for the past 3 days. Patient states the need started hurting in the popliteal area and subpatellar 3 days ago but got increasingly worse today when she stepped into her car and she felt a pop behind the knee. Patient was able to ambulate and did not lose stability and hernia at the time. Patient states the pain has gotten worse over the day and now has increased swelling and worsening pain when she tries to flex her knee. She denies fever, chills, chest pain, shortness of breath, abdominal pain, nausea, vomiting. Past History - Past Medical History Allergies/Adverse Reactions: Allergies Allergy/AdvReac Type Severity Reaction Status Date / Time codeine AdvReac Severe Rash Verified 01/10/18 22:02 Home Medications: Ambulatory Orders Levothyroxine [Synthroid -] 75 mcg PO DAILY 05/12/13 Propranolol HCl 80 mg PO HS 05/12/13 Albuterol 2.5/Ipratropium 0.5 [Duoneb -] 1 amp NEB QIDR #30 amp 11/13/16 Budesonide/Formeterol Fumarate [SYMBICORT 160/4.5mcg -] 2 puff IH BID #1 inhaler 11/13/16 Linagliptin/Metformin HCl [Jentadueto 2.5 mg-500 mg Tab] 1 each PO DAILY Anemia: No Asthma: Yes Cancer: No Cardiac Disorders: No CVA: No COPD: No CHF: No Dementia: No Diabetes: Yes GI Disorders: Yes (GASTRITIS) Disorders: No HTN: Yes Hypercholesterolemia: No Liver Disease: Yes Seizures: No Thyroid Disease: Yes - Surgical History Cholecystectomy: Yes - Suicide/Smoking/Psychosocial Hx Smoking History: Never smoked Have you smoked in the past 12 months: No Hx Alcohol Use: No Drug/Substance Use Hx: No Substance Use Type: None Review of Systems - Review of Systems Able to Perform ROS?: Yes Is the patient limited Dominican proficient: No Constitutional: No: Symptoms Reported HEENTM: No: Symptoms Reported Respiratory: No: Symptoms reported Cardiac (ROS): No: Symptoms Reported ABD/GI: No: Symptoms Reported : No: Symptoms Reported Musculoskeletal: Yes: Symptoms Reported Integumentary: No: Symptoms Reported Neurological: No: Symptoms reported *Physical Exam - Vital Signs Last Vital Signs Temp Pulse Resp BP Pulse Ox 98 F 75 20 151/74 99 01/10/18 22:02 01/10/18 22:02 01/10/18 22:02 01/10/18 22:02 01/10/18 22:02 - Physical Exam General Appearance: Yes: Appropriately Dressed. No: Apparent Distress HEENT: positive: Normal ENT Inspection Neck: positive: Trachea midline, Supple Respiratory/Chest: positive: Lungs Clear, Normal Breath Sounds. negative: Respiratory Distress, Accessory Muscle Use Cardiovascular: positive: Regular Rhythm, Regular Rate. negative: Edema, Murmur Vascular Pulses: Dorsalis-Pedis (R): 2+, Doralis-Pedis (L): 2+ Gastrointestinal/Abdominal: positive: Soft. negative: Tender Musculoskeletal: positive: Normal Inspection. negative: CVA Tenderness Extremity: positive: Normal Capillary Refill, Swelling (Suprapatellar and popliteal fossa of the right knee). negative: Normal Range of Motion (Unable to flex right knee greater than 90.), Calf Tenderness Integumentary: positive: Normal Color, Dry, Warm Neurologic: positive: Alert, Normal Response, Motor Strength 5/5 ED Treatment Course - RADIOLOGY Radiology Studies Ordered: Category Date Time Status KNEE 3 POS-RIGHT [RAD] Stat Radiology 01/10/18 22:11 Taken Medical Decision Making - Medical Decision Making 01/10/18 22:46 A/P: 72-year-old woman with multiple medical problems including thrombocytopenia, hypertension, kidney stones, hypothyroidism with atraumatic right knee pain which acutely worsened today while stepping into her vehicle. Suprapatellar swelling to the right knee. Tenderness in popliteal fossa. Tenderness to the infrapatellar area of the right knee on the anterior aspect of the leg. Increased pain to the right knee with flexion greater than 90. Negative anterior drawer Left knee within normal limits. 2+ dorsalis pedis pulses bilaterally. X-rays of the right knee. Will hold the medications patient took Tylenol prior to emergency room visit and NSAIDs contraindicated given thrombocytopenia. X-ray of right knee by me: Lateral view shows 2 crescent shaped calcifications noted to the posterior of the knee. No obvious fracture or subluxation or dislocation present. I will discharge the patient with knee immobilizer and crutches with referral for orthopedic doctor if symptoms do not improve in one week. Patient verbalized understanding of findings and discharge instructions. *DC/Admit/Observation/Transfer Diagnosis at time of Disposition: Right knee pain Qualifiers: Chronicity: acute Qualified Code(s): M25.561 - Pain in right knee - Discharge Dispostion Disposition: HOME Condition at time of disposition: Stable Admit: No - Referrals Referrals: Anam Faith MD [Primary Care Provider] - Ej Dill MD [Staff Physician] - - Patient Instructions Printed Discharge Instructions: DI for Knee Pain Additional Instructions: Take Tylenol or Motrin as needed for pain. Follow manufacturers instructions for appropriate dosage. Try not to walk or bear weight on your left ankle as much as possible for the next 3 days. Apply ice for 20 minutes and removed for at least 20 minutes before reapplying the ice. You've been given the number for an orthopedist. If symptoms do not resolve within the next 7 days call the orthopedist for further evaluation. Return to emergency department for discoloration of the foot, numbness or tingling to the foot, worsening pain, or any other concerns. Thank you very much for choosing us to provide your emergent healthcare needs. - Post Discharge Activity
== END 2018-01-10 23:02 | disposition home or self-care (01) ==
LOC: JERFT 21:56
PROC: 2W3QXYZ Immobilization of Right Lower Leg using Other Device (ICD-10-PCS; principal; 2018-01-10)
DX: M25.561 Pain in right knee (principal); I10 Essential (primary) hypertension; E03.9 Hypothyroidism, unspecified; J45.909 Unspecified asthma, uncomplicated; D69.6 Thrombocytopenia, unspecified; Z87.442 Personal history of urinary calculi
CPT/HCPCS: 29530; 73562-TC-RT-FY; 99282-25

== ENCOUNTER 2021-04-18 14:46 | Emergency (ER) | payer OTHER ==
[2021-04-18 14:58] VITALS: BP 162/62; PULSE 122; TEMP 98.1; BMI 29.2
[2021-04-18] MEDS ORDERED: LACTATED RINGERS SOLUTION 1000 ML INFUS.BAG IV ONE (16:06)
[2021-04-18 17:19] LABS: BASO % 0.4 % (0-2.0); EOS % 5.4 % (0-4.5); HEMATOCRIT 33.3 % (32.4-45.2); HEMOGLOBIN 11.5 GM/dL (10.7-15.3); MCH 34.1 pg (25.7-33.7); MCHC 34.5 g/dl (32.0-36.0); MEAN CELL VOLUME 98.9 fl (80-96); MEAN PLT VOLUME 10.1 fl (7.5-11.1); MONO % 10.9 % (3.8-10.2); NEUT % 67.3 % (42.8-82.8); PLATELET COUNT 41 10^3/uL (134-434); RBC 3.37 M/mm3 (3.60-5.2); RDW 15.7 % (11.6-15.6); WHITE BLOOD COUNT 2.7 K/mm3 (4.0-10.0)
[2021-04-18 17:27] LABS: INR 1.24 (0.83-1.09); PROTHROMBIN TIME (PATIENT) 14.9 SEC (9.7-13.0)
[2021-04-18 17:29] LABS: ACTIVATED PTT 30.1 SECONDS (25.2-36.5)
[2021-04-18 17:38] LABS: CHLORIDE 107 mmol/L (98-107); SODIUM 143 mmol/L (136-145)
[2021-04-18 17:41] LABS: ALBUMIN 3.2 g/dl (3.4-5.0); ANION GAP 9 MMOL/L (8-16); BLOOD UREA NITROGEN 9.3 mg/dL (7-18); CALCIUM 8.7 mg/dL (8.5-10.1); CO2 27 mmol/L (21-32)
[2021-04-18 17:42] LABS: GLUCOSE,RANDOM 101 mg/dL (74-106)
[2021-04-18 17:43] LABS: SGPT/ALT 39 U/L (13-61)
[2021-04-18 17:44] LABS: CREATININE 0.8 mg/dL (0.55-1.3); SGOT/AST 46 U/L (15-37)
[2021-04-18 17:46] LABS: BILIRUBIN,TOTAL 2.6 mg/dL (0.2-1); TOT PROT 7.3 g/dl (6.4-8.2)
[2021-04-18 17:47] LABS: ALK PHOS 62 U/L (45-117)
[2021-04-18 17:50] LABS: EPI CELLS 3 /uL (0-25.1); HYALINE CASTS 0 /uL (0-3.1); URINE APPEARANCE CLEAR; URINE BACTERIA 15 /uL (0-1359); URINE BILIRUBIN NEGATIVE (NEGATIVE); URINE COLOR YELLOW; URINE GLUCOSE (UA) NEGATIVE (NEGATIVE); URINE KETONE NEGATIVE (NEGATIVE); URINE LEUK ESTERASE TRACE (NEGATIVE); URINE NITRITE NEGATIVE (NEGATIVE); URINE PROTEIN NEGATIVE (NEGATIVE); URINE RBC 3 /uL (0-23.9); URINE WBC 7 /uL (0-25.8)
== END 2021-04-18 20:57 | disposition home or self-care (01) ==
LOC: JER 14:46
DX: R10.9 Unspecified abdominal pain (principal)
CPT/HCPCS: 36415; 71045-TC-FY; 74177-TC; 80053; 81003; 84484; 85025; 85610; 85730; 87086; 93005; 93010; 99285-25; C9803; Q9967; U0003; U0005

== ENCOUNTER 2021-04-22 11:41 | Inpatient (IN) | payer OTHER ==
[2021-04-22] MEDS ORDERED: CLINDAMYCIN 600MG PREMIX IVPB 600 MG/50 ML BAG IVPB ONE ×2 (13:23→14:23)
[2021-04-22 14:26] LABS: BASO % 0.5 % (0-2.0); EOS % 5.7 % (0-4.5); HEMATOCRIT 31.8 % (32.4-45.2); HEMOGLOBIN 10.9 GM/dL (10.7-15.3); LYMPH % 15.8 % (8-40); MCH 33.5 pg (25.7-33.7); MCHC 34.1 g/dl (32.0-36.0); MEAN CELL VOLUME 98.3 fl (80-96); MONO % 12.1 % (3.8-10.2); NEUT % 65.9 % (42.8-82.8); PLATELET COUNT 44 10^3/uL (134-434); RBC 3.24 M/mm3 (3.60-5.2); RDW 15.4 % (11.6-15.6); WHITE BLOOD COUNT 2.8 K/mm3 (4.0-10.0)
[2021-04-22 14:32] LABS: INR 1.27 (0.83-1.09); PROTHROMBIN TIME (PATIENT) 15.3 SEC (9.7-13.0)
[2021-04-22 14:34] LABS: ACTIVATED PTT 30.6 SECONDS (25.2-36.5)
[2021-04-22 14:45] LABS: ALBUMIN 3.2 g/dl (3.4-5.0); CALCIUM 8.9 mg/dL (8.5-10.1)
[2021-04-22 14:49] LABS: CREATININE 0.8 mg/dL (0.55-1.3)
[2021-04-22 14:50] LABS: BILIRUBIN,TOTAL 2.4 mg/dL (0.2-1)
[2021-04-22 14:55] LABS: BLOOD UREA NITROGEN 7.6 mg/dL (7-18)
[2021-04-22] MEDS ORDERED: ACETAMINOPHEN 325 MG TABLET (FP) PO PRN (17:14)
[2021-04-22] MEDS ORDERED: CEFAZOLIN 1 GM/D5W 1 GM/50 ML BAG IVPB SCH (18:00)
[2021-04-22] MEDS ORDERED: ALBUTEROL SO4 2.5/IPRATROPIUM 0.5 INH SOL 3 ML VIAL.NEB. NEB SCH (18:00)
[2021-04-22 18:31] LABS: N-TERMINAL BNP 136.2 pg/ml (5-125)
[2021-04-22] MEDS ORDERED: CEFAZOLIN 1 GM in DEXTROSE 5%-WATER - 1 GM/50 ML IVPB IVPB SCH (18:48)
[2021-04-22 19:08] VITALS: BMI 29.0
[2021-04-22] MEDS ORDERED: ceFAZolin SODIUM 1 GM VIAL ONE (20:12)
[2021-04-22] MEDS ORDERED: DEXTROSE 5%-WATER - 50 ML IVPB ONE (20:13)
[2021-04-22] MEDS: LIPASE/PROTEASE/AMYLASE 36,000 UNIT CAPSULE PO SCH (20:16)
[2021-04-22] MEDS: CEFAZOLIN 1 GM in DEXTROSE 5%-WATER - 1 GM/50 ML IVPB IVPB SCH (20:19)
[2021-04-22] MEDS ORDERED: PT OWN MED DRAWER 7, Y5N ONE (21:26)
[2021-04-22] MEDS: BUDESONIDE/FORMETEROL FUMARATE 160/4.5 mcg INHALER IH SCH (21:39)
[2021-04-22] MEDS: HEPARIN NA (PORCINE) 5,000 UNITS/ML 1ML VIAL SQ SCH (21:39)
[2021-04-23] MEDS ORDERED: ceFAZolin SODIUM 1 GM VIAL ONE ×4 (02:44→16:36)
[2021-04-23] MEDS ORDERED: DEXTROSE 5%-WATER - 50 ML IVPB ONE ×4 (02:45→16:36)
[2021-04-23] MEDS: CEFAZOLIN 1 GM in DEXTROSE 5%-WATER - 1 GM/50 ML IVPB IVPB SCH ×3 (02:48→17:36)
[2021-04-23] MEDS: FUROSEMIDE 40 MG/4 ML INJECTABLE VIAL IVPUSH SCH ×2 (06:05→13:44)
[2021-04-23] MEDS: ALBUTEROL SO4 2.5/IPRATROPIUM 0.5 INH SOL 3 ML VIAL.NEB. NEB SCH ×4 (07:50→20:14)
[2021-04-23 08:26] LABS: BASO % 0.6 % (0-2.0); EOS % 5.2 % (0-4.5); HEMATOCRIT 31.4 % (32.4-45.2); HEMOGLOBIN 10.8 GM/dL (10.7-15.3); LYMPH % 16.5 % (8-40); MCH 33.9 pg (25.7-33.7); MCHC 34.5 g/dl (32.0-36.0); MEAN CELL VOLUME 98.3 fl (80-96); MONO % 9.6 % (3.8-10.2); NEUT % 68.1 % (42.8-82.8); PLATELET COUNT 44 10^3/uL (134-434); RBC 3.19 M/mm3 (3.60-5.2); RDW 16.1 % (11.6-15.6); WHITE BLOOD COUNT 2.5 K/mm3 (4.0-10.0)
[2021-04-23 08:43] LABS: BLOOD UREA NITROGEN 10.6 mg/dL (7-18); CALCIUM 8.8 mg/dL (8.5-10.1)
[2021-04-23 08:44] LABS: ALBUMIN 3.1 g/dl (3.4-5.0); MAGNESIUM 1.8 mg/dL (1.8-2.4)
[2021-04-23 08:47] LABS: CREATININE 0.8 mg/dL (0.55-1.3); PHOSPHOROUS 3.4 mg/dL (2.5-4.9)
[2021-04-23 08:48] LABS: BILIRUBIN,TOTAL 2.6 mg/dL (0.2-1); TOT PROT 6.9 g/dl (6.4-8.2)
[2021-04-23] MEDS ORDERED: PATIENT'S OWN MEDICATION (NON-FORMULARY) (Amlodipine Bes/Olmesartan Med [Azor 5-20 Mg Tabl PO SCH (10:00)
[2021-04-23] MEDS: HEPARIN NA (PORCINE) 5,000 UNITS/ML 1ML VIAL SQ SCH ×2 (10:09→21:10)
[2021-04-23] MEDS: VALSARTAN 160 MG TABLET PO SCH (10:09)
[2021-04-23] MEDS: amLODIPine BESYLATE 5 MG TABLET (FP) PO SCH (10:09)
[2021-04-23] MEDS: LIPASE/PROTEASE/AMYLASE 36,000 UNIT CAPSULE PO SCH ×3 (10:09→17:37)
[2021-04-23] MEDS: ROSUVASTATIN CA 5 MG TABLET (FP) PO SCH (10:09)
[2021-04-23] MEDS: ISOSORBIDE MONONITRATE 60 MG TAB.SR.24H (FP) PO SCH (10:09)
[2021-04-23] MEDS: BUDESONIDE/FORMETEROL FUMARATE 160/4.5 mcg INHALER IH SCH ×2 (10:10→21:12)
[2021-04-23] MEDS ORDERED: MELATONIN 1 MG TABLET PO PRN (23:56)
[2021-04-24] MEDS ORDERED: DEXTROSE 5%-WATER - 50 ML IVPB ONE ×2 (01:40→08:56)
[2021-04-24] MEDS ORDERED: ceFAZolin SODIUM 1 GM VIAL ONE ×2 (01:40→08:56)
[2021-04-24] MEDS: CEFAZOLIN 1 GM in DEXTROSE 5%-WATER - 1 GM/50 ML IVPB IVPB SCH ×2 (01:44→09:48)
[2021-04-24] MEDS: FUROSEMIDE 40 MG/4 ML INJECTABLE VIAL IVPUSH SCH (05:28)
[2021-04-24] MEDS: ALBUTEROL SO4 2.5/IPRATROPIUM 0.5 INH SOL 3 ML VIAL.NEB. NEB SCH (07:15)
[2021-04-24 08:07] LABS: BLOOD UREA NITROGEN 12.8 mg/dL (7-18); CALCIUM 8.5 mg/dL (8.5-10.1)
[2021-04-24 08:11] LABS: CREATININE 0.7 mg/dL (0.55-1.3)
[2021-04-24 08:29] LABS: BASO % 0.8 % (0-2.0); EOS % 3.5 % (0-4.5); HEMATOCRIT 29.7 % (32.4-45.2); HEMOGLOBIN 10.1 GM/dL (10.7-15.3); LYMPH % 12.4 % (8-40); MCH 33.6 pg (25.7-33.7); MCHC 34.1 g/dl (32.0-36.0); MEAN CELL VOLUME 98.6 fl (80-96); MEAN PLT VOLUME 10.4 fl (7.5-11.1); MONO % 11.1 % (3.8-10.2); NEUT % 72.2 % (42.8-82.8); PLATELET COUNT 43 10^3/uL (134-434); RBC 3.01 M/mm3 (3.60-5.2); WHITE BLOOD COUNT 3.8 K/mm3 (4.0-10.0)
[2021-04-24] MEDS: ROSUVASTATIN CA 5 MG TABLET (FP) PO SCH (09:51)
[2021-04-24] MEDS: LIPASE/PROTEASE/AMYLASE 36,000 UNIT CAPSULE PO SCH (09:51)
[2021-04-24] MEDS: ISOSORBIDE MONONITRATE 60 MG TAB.SR.24H (FP) PO SCH (09:52)
[2021-04-24] MEDS: VALSARTAN 160 MG TABLET PO SCH (09:52)
[2021-04-24] MEDS: amLODIPine BESYLATE 5 MG TABLET (FP) PO SCH (09:52)
[2021-04-24] MEDS: BUDESONIDE/FORMETEROL FUMARATE 160/4.5 mcg INHALER IH SCH (09:52)
[2021-04-24] MEDS: HEPARIN NA (PORCINE) 5,000 UNITS/ML 1ML VIAL SQ SCH (09:54)
[2021-04-24 11:11] VITALS: BP 122/62; PULSE 62; TEMP 97.9
== END 2021-04-24 11:18 | disposition home or self-care (01) | DRG 603 ==
LOC: JER 11:41 → JERBED 13:54 → J7W 18:27
PROVIDERS: ADMIT Family Medicine; ATTEND Family Medicine
DX: L03.116 Cellulitis of left lower limb (principal); I10 Essential (primary) hypertension; E03.9 Hypothyroidism, unspecified; E78.5 Hyperlipidemia, unspecified; D69.6 Thrombocytopenia, unspecified; K70.31 Alcoholic cirrhosis of liver with ascites; D75.9 Disease of blood and blood-forming organs, unspecified; E11.9 Type 2 diabetes mellitus without complications; J44.9 Chronic obstructive pulmonary disease, unspecified; R60.0 Localized edema; R07.89 Other chest pain; E66.9 Obesity, unspecified; Z68.28 Body mass index [BMI] 28.0-28.9, adult; S30.1XXA Contusion of abdominal wall, initial encounter; X58.XXXA Exposure to other specified factors, initial encounter; Z87.442 Personal history of urinary calculi
CPT/HCPCS: 36415; 71045-TC-FY; 80048; 80053; 83735; 83880; 84100; 84443; 85025; 85610; 85730; 93005; 93010; 93970-TC; 94640; 99285-25; C9803; J1644; U0003; U0005

== ENCOUNTER 2022-01-13 20:03 | Inpatient (IN) | payer OTHER ==
[2022-01-13 21:54] LABS: BASO % 0.3 % (0-2.0); EOS % 5.7 % (0-4.5); HEMOGLOBIN 9.5 GM/dL (10.7-15.3); LYMPH % 17.3 % (8-40); MCH 34.4 pg (25.7-33.7); MEAN CELL VOLUME 98.1 fl (80-96); MEAN PLT VOLUME 9.7 fl (7.5-11.1); MONO % 12.6 % (3.8-10.2); NEUT % 64.1 % (42.8-82.8); RBC 2.75 M/mm3 (3.60-5.2); RDW 16.2 % (11.6-15.6); WHITE BLOOD COUNT 3.2 K/mm3 (4.0-10.0)
[2022-01-13 22:01] LABS: INR 1.5 (0.83-1.09); PROTHROMBIN TIME (PATIENT) 17.3 SEC (9.7-13.0)
[2022-01-13 22:04] LABS: ACTIVATED PTT 28.2 SECONDS (25.2-36.5)
[2022-01-13 22:07] LABS: VENOUS BASE EXCESS 3.4 mmol/L (-2-2); VENOUS O2 SATURATION 52.5 % (70-80); VENOUS PH 7.417 (7.310-7.410)
[2022-01-13 22:11] LABS: PLATELET COUNT 34 10^3/uL (134-434)
[2022-01-13 22:27] LABS: CHLORIDE 107 mmol/L (98-107); SODIUM 142 mmol/L (136-145)
[2022-01-13 22:29] LABS: ALBUMIN 3.6 g/dl (3.4-5.0); ANION GAP 8 MMOL/L (8-16); BLOOD UREA NITROGEN 17.6 mg/dL (7-18); CALCIUM 9.1 mg/dL (8.5-10.1); CO2 28 mmol/L (21-32); GLUCOSE,RANDOM 86 mg/dL (74-106); LIPASE 338 U/L (73-393); MAGNESIUM 1.7 mg/dL (1.8-2.4)
[2022-01-13 22:32] LABS: CREATININE 1.2 mg/dL (0.55-1.3); SGOT/AST 43 U/L (15-37); SGPT/ALT 26 U/L (13-61)
[2022-01-13 22:33] LABS: BILIRUBIN,TOTAL 2.8 mg/dL (0.2-1); TOT PROT 7.4 g/dl (6.4-8.2)
[2022-01-13 22:35] LABS: ALK PHOS 48 U/L (45-117)
[2022-01-13] MEDS ORDERED: LACTULOSE 20 GM/30 ML UDC (FOR ORAL USE ONLY) PO ONE (23:08)
[2022-01-13] MEDS ORDERED: LACTULOSE 20 GM/30 ML UDC (FOR ORAL USE ONLY) ONE (23:14)
[2022-01-13] MEDS ORDERED: RIFAXIMIN 550 MG TABLET PO SCH (23:15)
[2022-01-13] MEDS ORDERED: RIFAXIMIN 550 MG TABLET PO ONE (23:30)
[2022-01-14] MEDS ORDERED: ACETAMINOPHEN 325 MG TABLET (FP) PO PRN (02:02)
[2022-01-14] MEDS ORDERED: ALBUTEROL SO4 HFA INHALER IH ONE (02:15)
[2022-01-14] MEDS: ALBUTEROL SO4 HFA INHALER IH SCH ×6 (02:17→22:03)
[2022-01-14] MEDS ORDERED: MELATONIN 1 MG TABLET PO ONE (04:53)
[2022-01-14] MEDS ORDERED: LACTULOSE 20 GM/30 ML UDC (FOR ORAL USE ONLY) PO PRN (06:51)
[2022-01-14] MEDS: INSULIN SLIDING SCALE (NOVOLOG) 1 VIAL SQ SCH ×4 (06:53→22:03)
[2022-01-14] MEDS: LIPASE/PROTEASE/AMYLASE 36,000 UNIT CAPSULE PO SCH ×3 (06:58→22:03)
[2022-01-14] MEDS: LEVOTHYROXINE NA 75 MCG TABLET (FP) PO SCH (07:00)
[2022-01-14] MEDS ORDERED: LACTULOSE 20 GM/30 ML UDC (FOR ORAL USE ONLY) PO ONE (08:00)
[2022-01-14 08:19] VITALS: BMI 28.7
[2022-01-14] MEDS: PANTOPRAZOLE 40 MG TABLET PO SCH (09:49)
[2022-01-14] MEDS: FUROSEMIDE 40 MG TABLET (FP) PO SCH (09:50)
[2022-01-14] MEDS: amLODIPine BESYLATE 5 MG TABLET (FP) PO SCH (09:52)
[2022-01-14] MEDS: LOSARTAN POTASSIUM 50 MG TABLET PO SCH (09:52)
[2022-01-14] MEDS: ISOSORBIDE MONONITRATE 60 MG TAB.SR.24H (FP) PO SCH (09:52)
[2022-01-14] MEDS: RIFAXIMIN 550 MG TABLET PO SCH ×2 (09:53→22:03)
[2022-01-14] MEDS ORDERED: PATIENT'S OWN MEDICATION (NON-FORMULARY) (Amlodipine Bes/Olmesartan Med [Azor 5-20 Mg Tabl PO SCH (10:00)
[2022-01-14] MEDS: BUDESONIDE/FORMETEROL FUMARATE 160/4.5 mcg INHALER IH SCH ×2 (11:02→22:04)
[2022-01-14] MEDS: LACTULOSE 20 GM/30 ML UDC (FOR ORAL USE ONLY) PO SCH ×2 (13:37→22:03)
[2022-01-14] MEDS: ROSUVASTATIN CA 5 MG TABLET PO SCH (22:03)
[2022-01-15] MEDS: ALBUTEROL SO4 HFA INHALER IH SCH ×5 (02:36→17:16)
[2022-01-15] MEDS: LIPASE/PROTEASE/AMYLASE 36,000 UNIT CAPSULE PO SCH ×3 (06:39→22:25)
[2022-01-15] MEDS: LEVOTHYROXINE NA 75 MCG TABLET (FP) PO SCH (06:39)
[2022-01-15] MEDS: LACTULOSE 20 GM/30 ML UDC (FOR ORAL USE ONLY) PO SCH ×3 (06:39→22:25)
[2022-01-15] MEDS: INSULIN SLIDING SCALE (NOVOLOG) 1 VIAL SQ SCH ×3 (06:40→16:42)
[2022-01-15 08:57] LABS: BASO % 0.4 % (0-2.0); EOS % 1.9 % (0-4.5); HEMATOCRIT 26.4 % (32.4-45.2); HEMOGLOBIN 9.3 GM/dL (10.7-15.3); LYMPH % 10.5 % (8-40); MCH 34.3 pg (25.7-33.7); MCHC 35.1 g/dl (32.0-36.0); MEAN CELL VOLUME 97.8 fl (80-96); MEAN PLT VOLUME 10.2 fl (7.5-11.1); MONO % 10.1 % (3.8-10.2); NEUT % 77.1 % (42.8-82.8); PLATELET COUNT 38 10^3/uL (134-434); RDW 15.9 % (11.6-15.6); WHITE BLOOD COUNT 5.2 K/mm3 (4.0-10.0)
[2022-01-15 09:27] LABS: BLOOD UREA NITROGEN 20.9 mg/dL (7-18); CALCIUM 8.9 mg/dL (8.5-10.1); MAGNESIUM 1.7 mg/dL (1.8-2.4)
[2022-01-15 09:31] LABS: CREATININE 1.1 mg/dL (0.55-1.3)
[2022-01-15] MEDS ORDERED: MAGNESIUM SULF 50% (8.12 MEQ/2 ML-1 GM VIAL) IVPB ONE (10:30)
[2022-01-15] MEDS: LOSARTAN POTASSIUM 50 MG TABLET PO SCH (10:32)
[2022-01-15] MEDS: amLODIPine BESYLATE 5 MG TABLET (FP) PO SCH (10:32)
[2022-01-15] MEDS: FUROSEMIDE 40 MG TABLET (FP) PO SCH (10:33)
[2022-01-15] MEDS: PANTOPRAZOLE 40 MG TABLET PO SCH (10:33)
[2022-01-15] MEDS: RIFAXIMIN 550 MG TABLET PO SCH ×2 (10:34→22:26)
[2022-01-15] MEDS: BUDESONIDE/FORMETEROL FUMARATE 160/4.5 mcg INHALER IH SCH (10:35)
[2022-01-15] MEDS: ISOSORBIDE MONONITRATE 60 MG TAB.SR.24H (FP) PO SCH (10:36)
[2022-01-15] MEDS ORDERED: MAGNESIUM OXIDE 400 MG TABLET (FP) PO ONE (12:01)
[2022-01-15 13:36] LABS: EPI CELLS 8 /uL (0-25.1); HYALINE CASTS 1 /uL (0-3.1); PH,URINE 7.5 (5.0-8.0); URINE APPEARANCE CLEAR; URINE BACTERIA 48 /uL (0-1359); URINE BILIRUBIN NEGATIVE (NEGATIVE); URINE COLOR DK YELLOW; URINE GLUCOSE (UA) NEGATIVE (NEGATIVE); URINE KETONE TRACE (NEGATIVE); URINE LEUK ESTERASE TRACE (NEGATIVE); URINE NITRITE NEGATIVE (NEGATIVE); URINE PROTEIN NEGATIVE (NEGATIVE); URINE RBC 579 /uL (0-23.9); URINE WBC 24 /uL (0-25.8)
[2022-01-15] MEDS: ROSUVASTATIN CA 5 MG TABLET PO SCH (22:25)
[2022-01-16] MEDS: BUDESONIDE/FORMETEROL FUMARATE 160/4.5 mcg INHALER IH SCH ×3 (00:17→21:58)
[2022-01-16] MEDS: INSULIN SLIDING SCALE (NOVOLOG) 1 VIAL SQ SCH ×5 (00:17→21:53)
[2022-01-16] MEDS: ALBUTEROL SO4 HFA INHALER IH SCH ×7 (00:17→21:58)
[2022-01-16] MEDS: LIPASE/PROTEASE/AMYLASE 36,000 UNIT CAPSULE PO SCH ×3 (06:20→21:52)
[2022-01-16] MEDS: LACTULOSE 20 GM/30 ML UDC (FOR ORAL USE ONLY) PO SCH ×3 (06:20→21:52)
[2022-01-16] MEDS: LEVOTHYROXINE NA 75 MCG TABLET (FP) PO SCH (06:21)
[2022-01-16 08:19] LABS: HEMATOCRIT 23.3 % (32.4-45.2); HEMOGLOBIN 8.4 GM/dL (10.7-15.3); MCH 34.8 pg (25.7-33.7); MCHC 35.8 g/dl (32.0-36.0); MEAN CELL VOLUME 97.2 fl (80-96); MEAN PLT VOLUME 10.6 fl (7.5-11.1); PLATELET COUNT 40 10^3/uL (134-434); RDW 15.9 % (11.6-15.6); WHITE BLOOD COUNT 4.2 K/mm3 (4.0-10.0)
[2022-01-16 08:36] LABS: CALCIUM 9.2 mg/dL (8.5-10.1)
[2022-01-16 08:37] LABS: ALBUMIN 3.2 g/dl (3.4-5.0); BLOOD UREA NITROGEN 20.2 mg/dL (7-18)
[2022-01-16 08:39] LABS: BILIRUBIN,TOTAL 3.7 mg/dL (0.2-1); CREATININE 1.3 mg/dL (0.55-1.3)
[2022-01-16 08:40] LABS: TOT PROT 6.4 g/dl (6.4-8.2)
[2022-01-16] MEDS: RIFAXIMIN 550 MG TABLET PO SCH ×2 (09:29→21:52)
[2022-01-16] MEDS: PANTOPRAZOLE 40 MG TABLET PO SCH (09:29)
[2022-01-16] MEDS: FUROSEMIDE 40 MG TABLET (FP) PO SCH (09:29)
[2022-01-16] MEDS: amLODIPine BESYLATE 5 MG TABLET (FP) PO SCH (09:29)
[2022-01-16] MEDS: SPIRONOLACTONE 25 MG TABLET PO SCH (09:29)
[2022-01-16] MEDS: LOSARTAN POTASSIUM 50 MG TABLET PO SCH (09:29)
[2022-01-16] MEDS: ISOSORBIDE MONONITRATE 60 MG TAB.SR.24H (FP) PO SCH (09:29)
[2022-01-16] MEDS ORDERED: POTASSIUM CHLORIDE TABS 20 MEQ TABLET.ER (FP) PO ONE (11:30)
[2022-01-16] MEDS ORDERED: INSULIN (NOVOLOG) ASPART 100 UNITS/ML 10ML VIAL ONE (21:48)
[2022-01-16] MEDS: ROSUVASTATIN CA 5 MG TABLET PO SCH (21:53)
[2022-01-16] MEDS ORDERED: MELATONIN 1 MG TABLET PO PRN (22:15)
[2022-01-17] MEDS: ALBUTEROL SO4 HFA INHALER IH SCH ×4 (06:34→17:16)
[2022-01-17] MEDS: LACTULOSE 20 GM/30 ML UDC (FOR ORAL USE ONLY) PO SCH ×2 (06:34→13:38)
[2022-01-17] MEDS: LIPASE/PROTEASE/AMYLASE 36,000 UNIT CAPSULE PO SCH ×2 (06:34→13:39)
[2022-01-17] MEDS: LEVOTHYROXINE NA 75 MCG TABLET (FP) PO SCH (06:35)
[2022-01-17] MEDS: INSULIN SLIDING SCALE (NOVOLOG) 1 VIAL SQ SCH ×3 (06:35→16:13)
[2022-01-17 09:04] LABS: ALBUMIN 3.3 g/dl (3.4-5.0); BLOOD UREA NITROGEN 19.2 mg/dL (7-18); CALCIUM 9.1 mg/dL (8.5-10.1); MAGNESIUM 1.8 mg/dL (1.8-2.4)
[2022-01-17 09:07] LABS: CREATININE 1.3 mg/dL (0.55-1.3)
[2022-01-17 09:09] LABS: BILIRUBIN,TOTAL 2.5 mg/dL (0.2-1); TOT PROT 6.6 g/dl (6.4-8.2)
[2022-01-17] MEDS: FUROSEMIDE 40 MG TABLET (FP) PO SCH (10:04)
[2022-01-17] MEDS: SPIRONOLACTONE 25 MG TABLET PO SCH (10:04)
[2022-01-17] MEDS: ISOSORBIDE MONONITRATE 60 MG TAB.SR.24H (FP) PO SCH (10:04)
[2022-01-17] MEDS: LOSARTAN POTASSIUM 50 MG TABLET PO SCH (10:04)
[2022-01-17] MEDS: amLODIPine BESYLATE 5 MG TABLET (FP) PO SCH (10:05)
[2022-01-17] MEDS: BUDESONIDE/FORMETEROL FUMARATE 160/4.5 mcg INHALER IH SCH (10:08)
[2022-01-17] MEDS: PANTOPRAZOLE 40 MG TABLET PO SCH (10:09)
[2022-01-17] MEDS: RIFAXIMIN 550 MG TABLET PO SCH (10:09)
[2022-01-17 14:20] VITALS: BP 113/52; PULSE 62; TEMP 98.4
== END 2022-01-17 18:25 | disposition home health service (06) | DRG 442 ==
LOC: JER 20:03 → JERBED 23:06 → J6S 01-14 03:50
PROVIDERS: ADMIT Hospitalist; ATTEND Family Medicine
DX: K72.90 Hepatic failure, unspecified without coma (principal); K76.6 Portal hypertension; E72.20 Disorder of urea cycle metabolism, unspecified; E87.3 Alkalosis; E11.9 Type 2 diabetes mellitus without complications; K74.60 Unspecified cirrhosis of liver; J44.9 Chronic obstructive pulmonary disease, unspecified; D69.6 Thrombocytopenia, unspecified; J45.909 Unspecified asthma, uncomplicated; E03.9 Hypothyroidism, unspecified; E78.5 Hyperlipidemia, unspecified; E80.6 Other disorders of bilirubin metabolism; R47.81 Slurred speech; D73.1 Hypersplenism; R41.82 Altered mental status, unspecified; I12.9 Hypertensive chronic kidney disease with stage 1 through stage 4 chronic kidney disease, or unspecified chronic kidney disease; E11.22 Type 2 diabetes mellitus with diabetic chronic kidney disease; N18.9 Chronic kidney disease, unspecified
CPT/HCPCS: 36415; 70450-TC; 71045-TC-FY; 76775-TC; 80048; 80053; 80307; 81003; 82140; 82803; 82962; 83540; 83550; 83690; 83735; 84436; 84443; 84484; 85025; 85027; 85610; 85730; 86850; 86900; 86901; 87040; 87086; 87186; 93005; 93010; 97116-GP; 97162-GP; 99285-25; C9803-CS; U0003; U0005

== ENCOUNTER 2022-01-24 13:42 | Inpatient (IN) | payer OTHER ==
[2022-01-24 14:19] VITALS: BMI 24.7
[2022-01-24 15:41] LABS: BASO % 0.1 % (0-2.0); EOS % 3.3 % (0-4.5); HEMATOCRIT 28.5 % (32.4-45.2); HEMOGLOBIN 10.1 GM/dL (10.7-15.3); LYMPH % 12.7 % (8-40); MCH 34.7 pg (25.7-33.7); MCHC 35.4 g/dl (32.0-36.0); MEAN CELL VOLUME 98.1 fl (80-96); MEAN PLT VOLUME 11.9 fl (7.5-11.1); MONO % 7.7 % (3.8-10.2); NEUT % 76.2 % (42.8-82.8); PLATELET COUNT 55 10^3/uL (134-434); RBC 2.91 M/mm3 (3.60-5.2); RDW 16.6 % (11.6-15.6); WHITE BLOOD COUNT 4.4 K/mm3 (4.0-10.0)
[2022-01-24 15:48] LABS: INR 1.56 (0.83-1.09)
[2022-01-24 15:50] LABS: ACTIVATED PTT 30.9 SECONDS (25.2-36.5)
[2022-01-24 16:05] LABS: CALCIUM 10.3 mg/dL (8.5-10.1)
[2022-01-24 16:06] LABS: ALBUMIN 3.8 g/dl (3.4-5.0); BLOOD UREA NITROGEN 25.2 mg/dL (7-18)
[2022-01-24 16:08] LABS: BILIRUBIN,DIRECT 0.6 mg/dL (0.0-0.2)
[2022-01-24 16:09] LABS: CREATININE 1.4 mg/dL (0.55-1.3)
[2022-01-24 16:10] LABS: BILIRUBIN,TOTAL 3.3 mg/dL (0.2-1); TOT PROT 8.4 g/dl (6.4-8.2)
[2022-01-24] MEDS ORDERED: LACTULOSE 20 GM/30 ML UDC (FOR ORAL USE ONLY) PO ONE (16:47)
[2022-01-24] MEDS ORDERED: SODIUM CHLORIDE 0.9% 500 ML INFUS.BAG IV ONE (16:47)
[2022-01-24] MEDS ORDERED: LACTULOSE 20 GM/30 ML UDC (FOR ORAL USE ONLY) ONE (17:15)
[2022-01-24] MEDS: SODIUM CHLORIDE 1,000 ML IV SCH (21:34)
[2022-01-24] MEDS: LACTULOSE 20 GM/30 ML UDC (FOR ORAL USE ONLY) PO SCH (22:25)
[2022-01-25] MEDS: LEVOTHYROXINE NA 50 MCG TABLET (FP) PO SCH (06:08)
[2022-01-25] MEDS: ALBUTEROL SO4 2.5/IPRATROPIUM 0.5 INH SOL 3 ML VIAL.NEB. NEB SCH ×4 (08:10→20:16)
[2022-01-25 09:16] LABS: INR 1.53 (0.83-1.09); PROTHROMBIN TIME (PATIENT) 17.7 SEC (9.7-13.0)
[2022-01-25 09:27] LABS: HEMATOCRIT 26.4 % (32.4-45.2); HEMOGLOBIN 9.6 GM/dL (10.7-15.3); MCH 35.5 pg (25.7-33.7); MCHC 36.4 g/dl (32.0-36.0); MEAN CELL VOLUME 97.5 fl (80-96); PLATELET COUNT 40 10^3/uL (134-434); RBC 2.71 M/mm3 (3.60-5.2); RDW 16.5 % (11.6-15.6); WHITE BLOOD COUNT 2.4 K/mm3 (4.0-10.0)
[2022-01-25] MEDS: LOSARTAN POTASSIUM 50 MG TABLET PO SCH (09:27)
[2022-01-25] MEDS: ISOSORBIDE MONONITRATE 60 MG TAB.SR.24H (FP) PO SCH (09:27)
[2022-01-25] MEDS: FUROSEMIDE 40 MG TABLET (FP) PO SCH (09:27)
[2022-01-25] MEDS: LACTULOSE 20 GM/30 ML UDC (FOR ORAL USE ONLY) PO SCH ×4 (09:27→22:19)
[2022-01-25] MEDS: SPIRONOLACTONE 25 MG TABLET PO SCH (09:27)
[2022-01-25] MEDS: amLODIPine BESYLATE 5 MG TABLET (FP) PO SCH (09:27)
[2022-01-25 09:50] LABS: CALCIUM 9.3 mg/dL (8.5-10.1)
[2022-01-25 09:51] LABS: BLOOD UREA NITROGEN 22.5 mg/dL (7-18)
[2022-01-25 09:54] LABS: ALBUMIN 3.1 g/dl (3.4-5.0); CREATININE 1.2 mg/dL (0.55-1.3)
[2022-01-25 09:56] LABS: BILIRUBIN,TOTAL 3.3 mg/dL (0.2-1)
[2022-01-25 09:58] LABS: TOT PROT 7.2 g/dl (6.4-8.2)
[2022-01-25] MEDS ORDERED: PATIENT'S OWN MEDICATION (NON-FORMULARY) (Amlodipine Bes/Olmesartan Med [Azor 5-20 Mg Tabl PO SCH (10:00)
[2022-01-25] MEDS: INSULIN SLIDING SCALE (NOVOLOG) 1 VIAL SQ SCH ×3 (11:27→22:19)
[2022-01-25] MEDS: SODIUM CHLORIDE 1,000 ML IV SCH ×2 (21:58→22:18)
[2022-01-25] MEDS: RIFAXIMIN 550 MG TABLET PO SCH (21:59)
[2022-01-26] MEDS: INSULIN SLIDING SCALE (NOVOLOG) 1 VIAL SQ SCH ×4 (06:09→21:51)
[2022-01-26] MEDS: LEVOTHYROXINE NA 50 MCG TABLET (FP) PO SCH (06:09)
[2022-01-26] MEDS: ALBUTEROL SO4 2.5/IPRATROPIUM 0.5 INH SOL 3 ML VIAL.NEB. NEB SCH ×4 (08:15→20:29)
[2022-01-26 09:14] LABS: HEMATOCRIT 23.8 % (32.4-45.2); HEMOGLOBIN 8.4 GM/dL (10.7-15.3); MCH 34.8 pg (25.7-33.7); MCHC 35.4 g/dl (32.0-36.0); MEAN CELL VOLUME 98.3 fl (80-96); MEAN PLT VOLUME 10.3 fl (7.5-11.1); PLATELET COUNT 38 10^3/uL (134-434); RBC 2.43 M/mm3 (3.60-5.2); RDW 16.6 % (11.6-15.6); WHITE BLOOD COUNT 2.6 K/mm3 (4.0-10.0)
[2022-01-26 09:34] LABS: ALBUMIN 3.1 g/dl (3.4-5.0); BLOOD UREA NITROGEN 22.4 mg/dL (7-18); MAGNESIUM 1.6 mg/dL (1.8-2.4)
[2022-01-26 09:36] LABS: PHOSPHOROUS 3.4 mg/dL (2.5-4.9)
[2022-01-26 09:37] LABS: CREATININE 1.3 mg/dL (0.55-1.3); TOT PROT 6.4 g/dl (6.4-8.2)
[2022-01-26 09:42] LABS: BILIRUBIN,TOTAL 2.6 mg/dL (0.2-1)
[2022-01-26] MEDS: RIFAXIMIN 550 MG TABLET PO SCH ×2 (09:44→21:42)
[2022-01-26] MEDS: FUROSEMIDE 40 MG TABLET (FP) PO SCH (09:44)
[2022-01-26] MEDS: amLODIPine BESYLATE 5 MG TABLET (FP) PO SCH (09:44)
[2022-01-26] MEDS: LACTULOSE 20 GM/30 ML UDC (FOR ORAL USE ONLY) PO SCH ×4 (09:44→21:42)
[2022-01-26] MEDS: LOSARTAN POTASSIUM 50 MG TABLET PO SCH (09:44)
[2022-01-26] MEDS: ISOSORBIDE MONONITRATE 60 MG TAB.SR.24H (FP) PO SCH (09:44)
[2022-01-26] MEDS: SPIRONOLACTONE 25 MG TABLET PO SCH (09:44)
[2022-01-26] MEDS ORDERED: MAGNESIUM SULF 50% (8.12 MEQ/2 ML-1 GM VIAL) IVPB ONE (10:15)
[2022-01-27] MEDS: INSULIN SLIDING SCALE (NOVOLOG) 1 VIAL SQ SCH ×4 (06:08→22:08)
[2022-01-27] MEDS: LEVOTHYROXINE NA 50 MCG TABLET (FP) PO SCH (06:08)
[2022-01-27] MEDS: ALBUTEROL SO4 2.5/IPRATROPIUM 0.5 INH SOL 3 ML VIAL.NEB. NEB SCH ×4 (07:29→20:11)
[2022-01-27 09:07] LABS: INR 1.51 (0.83-1.09); PROTHROMBIN TIME (PATIENT) 17.4 SEC (9.7-13.0)
[2022-01-27 09:25] LABS: CALCIUM 8.6 mg/dL (8.5-10.1)
[2022-01-27 09:26] LABS: ALBUMIN 2.9 g/dl (3.4-5.0); BLOOD UREA NITROGEN 15.3 mg/dL (7-18)
[2022-01-27 09:28] LABS: HEMATOCRIT 24.9 % (32.4-45.2); HEMOGLOBIN 8.8 GM/dL (10.7-15.3); MCH 34.6 pg (25.7-33.7); MCHC 35.3 g/dl (32.0-36.0); MEAN CELL VOLUME 97.9 fl (80-96); MEAN PLT VOLUME 10.9 fl (7.5-11.1); PLATELET COUNT 42 10^3/uL (134-434); RBC 2.54 M/mm3 (3.60-5.2); RDW 16.5 % (11.6-15.6); WHITE BLOOD COUNT 2.9 K/mm3 (4.0-10.0)
[2022-01-27 09:29] LABS: CREATININE 1.2 mg/dL (0.55-1.3)
[2022-01-27 09:30] LABS: IRON SERUM 85 ug/dL (50-175); TOT PROT 6.8 g/dl (6.4-8.2); TOTAL IRON BINDING CAPACITY 213 ug/dL (250-450)
[2022-01-27 09:31] LABS: BILIRUBIN,TOTAL 2.5 mg/dL (0.2-1)
[2022-01-27] MEDS ORDERED: INSULIN (NOVOLOG) ASPART 100 UNITS/ML 10ML VIAL ONE (09:54)
[2022-01-27] MEDS: LACTULOSE 20 GM/30 ML UDC (FOR ORAL USE ONLY) PO SCH ×4 (10:01→22:07)
[2022-01-27] MEDS: LOSARTAN POTASSIUM 50 MG TABLET PO SCH (10:02)
[2022-01-27] MEDS: SPIRONOLACTONE 25 MG TABLET PO SCH (10:02)
[2022-01-27] MEDS: FUROSEMIDE 40 MG TABLET (FP) PO SCH (10:02)
[2022-01-27] MEDS: amLODIPine BESYLATE 5 MG TABLET (FP) PO SCH (10:02)
[2022-01-27] MEDS: ISOSORBIDE MONONITRATE 60 MG TAB.SR.24H (FP) PO SCH (10:02)
[2022-01-27] MEDS: RIFAXIMIN 550 MG TABLET PO SCH ×2 (10:02→22:08)
[2022-01-27] MEDS ORDERED: POTASSIUM CHLORIDE TABS 10 MEQ TABLET.ER (FP) PO ONE (10:45)
[2022-01-28] MEDS: LEVOTHYROXINE NA 50 MCG TABLET (FP) PO SCH (06:09)
[2022-01-28] MEDS: INSULIN SLIDING SCALE (NOVOLOG) 1 VIAL SQ SCH ×3 (06:10→16:52)
[2022-01-28] MEDS: ALBUTEROL SO4 2.5/IPRATROPIUM 0.5 INH SOL 3 ML VIAL.NEB. NEB SCH ×3 (07:27→15:11)
[2022-01-28] MEDS: LACTULOSE 20 GM/30 ML UDC (FOR ORAL USE ONLY) PO SCH ×3 (09:36→17:04)
[2022-01-28] MEDS: FUROSEMIDE 40 MG TABLET (FP) PO SCH (09:36)
[2022-01-28] MEDS: LOSARTAN POTASSIUM 50 MG TABLET PO SCH (09:36)
[2022-01-28] MEDS: SPIRONOLACTONE 25 MG TABLET PO SCH (09:37)
[2022-01-28] MEDS: RIFAXIMIN 550 MG TABLET PO SCH (09:37)
[2022-01-28] MEDS: ISOSORBIDE MONONITRATE 60 MG TAB.SR.24H (FP) PO SCH (09:37)
[2022-01-28] MEDS: amLODIPine BESYLATE 5 MG TABLET (FP) PO SCH (09:37)
[2022-01-28 15:35] VITALS: BP 94/48; PULSE 59; TEMP 97.8
== END 2022-01-28 18:15 | disposition home health service (06) | DRG 441 ==
LOC: JER 13:42 → JERBED 18:14 → J7W 21:57
PROVIDERS: ADMIT Hospitalist; ATTEND Family Medicine
DX: K72.90 Hepatic failure, unspecified without coma (principal); G93.41 Metabolic encephalopathy; G92.8 Other toxic encephalopathy; E72.20 Disorder of urea cycle metabolism, unspecified; D61.818 Other pancytopenia; E80.6 Other disorders of bilirubin metabolism; J44.9 Chronic obstructive pulmonary disease, unspecified; I10 Essential (primary) hypertension; E11.9 Type 2 diabetes mellitus without complications; D69.6 Thrombocytopenia, unspecified
CPT/HCPCS: 36415; 80053; 82140; 82248; 82962; 83036; 83540; 83550; 83735; 84100; 84439; 84443; 85025; 85027; 85610; 85730; 86850; 86900; 86901; 93005; 93010; 94640; 97116-GP; 99285-25; C9803-CS; U0003; U0005

== ENCOUNTER 2022-02-01 16:57 | Emergency (ER) | payer OTHER ==
[2022-02-01 17:08] VITALS: TEMP 98; BMI 26.5
[2022-02-01 19:11] LABS: PH,URINE 7.5 (5.0-8.0); URINE APPEARANCE CLEAR; URINE BILIRUBIN NEGATIVE (NEGATIVE); URINE COLOR YELLOW; URINE GLUCOSE (UA) NEGATIVE (NEGATIVE); URINE KETONE NEGATIVE (NEGATIVE); URINE LEUK ESTERASE NEGATIVE (NEGATIVE); URINE NITRITE NEGATIVE (NEGATIVE); URINE PROTEIN NEGATIVE (NEGATIVE); URINE UROBILINOGEN 0.2 mg/dL (0.2-1.0)
[2022-02-01 20:36] LABS: BASO % 0.5 % (0-2.0); EOS % 5.2 % (0-4.5); HEMATOCRIT 30.5 % (32.4-45.2); HEMOGLOBIN 10.7 GM/dL (10.7-15.3); LYMPH % 19.2 % (8-40); MCH 34.8 pg (25.7-33.7); MEAN CELL VOLUME 99.4 fl (80-96); MEAN PLT VOLUME 11.7 fl (7.5-11.1); MONO % 10.9 % (3.8-10.2); NEUT % 64.2 % (42.8-82.8); PLATELET COUNT 46 10^3/uL (134-434); RBC 3.07 M/mm3 (3.60-5.2); RDW 18.4 % (11.6-15.6); WHITE BLOOD COUNT 3.1 K/mm3 (4.0-10.0)
[2022-02-01 20:42] VITALS: BP 143/71; PULSE 78
[2022-02-01 20:43] LABS: INR 1.35 (0.83-1.09); PROTHROMBIN TIME (PATIENT) 15.6 SEC (9.7-13.0)
[2022-02-01 20:45] LABS: ALBUMIN 3.3 g/dl (3.4-5.0); CALCIUM 9.4 mg/dL (8.5-10.1)
[2022-02-01 20:48] LABS: CREATININE 1.5 mg/dL (0.55-1.3)
[2022-02-01 20:50] LABS: BILIRUBIN,TOTAL 2.4 mg/dL (0.2-1)
[2022-02-01] MEDS ORDERED: LACTULOSE 20 GM/30 ML UDC (FOR ORAL USE ONLY) PO ONE (21:38)
[2022-02-01] MEDS ORDERED: LACTATED RINGERS SOLUTION 1000 ML INFUS.BAG IV ONE (21:38)
[2022-02-01] MEDS ORDERED: LACTULOSE 20 GM/30 ML UDC (FOR ORAL USE ONLY) ONE (21:53)
== END 2022-02-01 22:51 | disposition home or self-care (01) ==
LOC: JER 16:57
DX: K72.91 Hepatic failure, unspecified with coma (principal)
CPT/HCPCS: 36415; 80053; 81003; 82140; 85025; 85610; 85730; 87086; 93005; 93010; 99285-25